=== PATIENT | female | born 1945 | race Caucasian/White ===

== ENCOUNTER 2022-04-10 11:15 | Outpatient (RCR) | payer MEDICARE, OTHER, SELFPAY ==
--- NOTE | 2022-01-24 14:34 | PT.OPEX ---
Please sign eval seen below to indicate agreement with treatment plan and interventions to be provided. Thank you. - Justyna PT [place] Outpatient Eval PT [facility] Outpatient Eval Start: 01/24/22 12:51 Freq: Status: Active Protocol: Document 01/24/22 12:51 TLQ (Rec: 01/24/22 14:22 TLQ [id number]) E-Signed By Justyna Banks DPT Physical Therapy Outpatient Evaluation Insurance Information Insurance Name Medicare B,Other; See Comments Insurance Information/Comments Aetna [facility] Medical Diagnosis Pain in R shoulder (M25.511) Treating Diagnosis Pain in R shoulder (M25.511) Cervicalgia (M54.2) Abnormal posture (R29.3) Referring MD Dr. Trista Lin Subjective Subjective Patient reports pain in her R shoulder that started randomly about a month ago. Initially felt like a shot in the side of her arm, now location more on the front of the shoulder. Reports her doctor prescribed her 10 days of Naproxen, takes 2x/day with food. Reports doctor thinks it is osteoarthritis. Patient has pain with unloading the reaching behind her back or when reaching to put dishes away in the cupboard. Has tried ibuprofen in the past but stopped working. Reports she is not able to sleep on her R side, is a side sleeper. Is R handed. Denies any past hx of shoulder pain/injuries. Has numbness occasionally in lateral 3 fingers, has to sleep specific way to prevent tingling. Reports increased frequency of headaches in the past few months, at least 1 per week. Denies nausea, dizziness, visual/auditory changes with headaches. Pain Comments 0/10 at best, 8/10 at worst describes pain as a dull ache can be a quick pain if over reach for something Date of Last Physician Visit 01/15/22 Current Work Status Retired Preferred Name Nayeli Precautions Therapy Limitations/Systems Review Not Limited Objective Range of Motion Flexion - L 147, R 128 Abduction - L 120, R 80 painful IR - L 90, R 90 ER - L 60, R 68 twinge around 20 deg. Strength Sh. flexion - L 5, R 4 mild painful Abduction - L 5, R 4- painful IR - L 5, R 5 ER - L 5, R 5 Elbow flexion - L 5, R 4+ mild pain Palpation Tender with palpation of R proximal bicep tendon, pecs, supraspinatus, upper trap, suboccipitals Posterior GH mob - normal bilaterally 1st rib mobility - normal bilaterally Posture Forward head, rounded shoulders Other/Pertinent Objective Special tests: Mccoy-marybeth - negative bilaterally Neer impingement - negative bilaterally, hesitant on R Drop arm test - negative L, twinge around 120 on R Empty can - negative L, positive for pain on R Functional Test Performed & Score SPADI (01/24/22) pain score - 43/50 (86%) disability score - 50/80 (62.5 % impaired) total score - 93/130 MDC = 13 points Assessment Assessment/Impression Patient is a 76 year old female who presents with R shoulder symptoms consistent with impingement due to decreased joint space from osteoarthritis. She has pain with tasks involving reaching overhead or behind her back. Decreased AROM for shoulder flexion, abduction, and external rotation. Tender with palpation of R proximal bicep , supraspinatus, and upper trapezius. Tight muscles referring pain to head and may be causing headaches. Negative tests for shoulder impingement but demonstrated hesitancy to perform tests due to perceived pain. Patient will benefit from physical therapy interventions to increase R shoulder ROM, strength, and decrease tissue tightness to improve overall upper extremity mobility to return patient to PLOF. Primary Functional Limitations R shoulder pain, difficult with reaching overhead and behind back, decreased R shoulder ROM Plan of Care Rehabilitation Potential Good Physical Therapy Goals created 01/24/22: STG - Patient will decrease subjective report of pain from 8/10 at worst to 5/10 to indicate improving symptoms and positive response to interventions in 4 weeks. 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 LTG - Patient will increase R shoulder ROM to be WFL for improved ability to perform overhead and behind the back reaching with decreased pain in 10 weeks. LTG - Patient will decrease total score on SPADI from 93 to 70 to indicate decrease in symptoms and improvement in ability to perform functional UE tasks around the house and return toward PLOF in 10 weeks . Treatment Plan/Direct Interventions Electrical Stimulation,Joint Mobilization,Manual Therapy, Neuromuscular Re-ed, Therapeutic Activities, Therapeutic Exercises Frequency/Duration 1x/week for 8-10 weeks Patient Will Be Discharged From Therapy Completion of LTG(s),Skills Plateau,Independent w/HEP, Independently Progressing Evaluation Billing Untimed Code Treatment Minutes 35 Complexity Moderate Certification Information Initial Certification Date 01/24/22 Ending Certification Date 04/04/22
== END 2022-07-11 09:58 | disposition home or self-care (01) ==
PROVIDERS: PCP Family Medicine; Visit Provider Family Medicine
DX: M25.511 Pain in right shoulder (principal); Z51.89 Encounter for other specified aftercare
CPT/HCPCS: 97110; 97140; 97162

== ENCOUNTER 2022-05-23 13:24 | Outpatient (CLI) | payer MEDICARE, OTHER, SELFPAY ==
--- OUTSIDE RECORDS SUMMARY | 2022-05-23 09:51 | XMS_ITS | Clinical Summary ---
:1945 Author Organization [employer] [facility] Address [place] [address] Care Team Providers Name Role Phone Konstantin Pak MD Primary Care Provider [phone] Allergies Active Allergy Reactions Severity Noted Date Comments Bacitracin 12/24/2006 Hymenoptera Allergenic Extract Anaphylaxis High 01/18/2007 Cephalexin *Unknown 12/05/2014 Medications Medication Sig Dispensed Refills Start Date End Date Status ASPIRIN 81 MG TAB, take 1 tablet (81 0 12/24/2006 Active DELAYED RELEASE mg) by oral route once daily MULTIVITAMIN TAB take 1 tablet by 0 12/24/2006 Active oral route once daily with food GLUCOSAMINE 1500 COMPLEX one tab daily, 0 12/24/2006 Active 500 MG-400 MG CAP every other day two tabs metFORMIN (GLUCOPHAGE) Take 250 mg by 0 Active 250 mg as half tablet mouth 2 times daily with meals. rx EPINEPHrine (EPIPEN) Inject 1 Each 0 Active 0.3 mg/0.3 mL injection intramuscular one (ED DC MED) time if needed for Allergic Reaction. hydrochlorothiazide Take 25 mg by 0 Active (HCTZ) 25 mg tablet mouth once daily. amLODIPine (NORVASC) 5 Take 5 mg by mouth 0 Active mg tablet once daily. calcium Take 1 tablet by 0 Act annabelle carbonate-vitamin D3, mouth once daily 600 mg-400 unit, with a meal. (CALCIUM WITH VITAMIN D) 600 mg(1,500mg) -400 unit tablet Cyanocobalamin (VITAMIN Take 2,000 mcg by 0 Active B-12) 2,000 mcg tablet mouth once daily. Mv,Ca,Vmr-QL-Kusxwn Take 1 tablet by 0 Active No.157 (ESTROVEN MAXIMUM mouth once daily. STRENGTH) 400 mcg tab Active Problems Not on file Family History Medical History Relation Name Comments Genetic Other cancer-father~hy pertension-mother~cataracts-mother~stro ke-mother~lazy e ye-brother Relation Name Status Comments Other Social History Tobacco Use Types Packs/Day Years Used Date Never Smoker 0 Smokeless Tobacco: Never Used Alcohol Use Standard Drinks/Week Comments No 0 (1 standard drink = 0.6 oz pure alcoho l) RARE Alcohol Habits Answer Date Recorded How often do you have a drink containing alcohol? Not asked How many drinks containing alcohol do you have on a typical Not asked day when you are drinking? How often do you have six or more drinks on one occasion? No t asked Comment: RARE 12/07/2014 Sex Assigned at Date Recorded Not on file Obstetrics History Last Filed Vital Signs Vital Sign Reading Time Taken Comments Blood Pressure 133/74 12/07/2014 8:55 AM CDT Pulse 54 12/07/2014 8:55 AM CDT Temperature 36.7 ??C (98.1 ??F) 12/07/2014 8:10 AM CDT Respiratory Rate 16 12/07/2014 8:55 AM CDT Oxygen Saturation 93% 12/07/2014 8:55 AM CDT Inhaled Oxygen Concentration - - Weight 95 kg (209 lb 7 oz) 12/07/2014 6:28 AM CDT Height 171.5 cm (5' 7.5) 12/07/2014 6:28 AM CDT Body Mass Index 32.32 12/07/2014 6:28 AM CDT Plan of Treatment Health Maintenance Due Date Last Done Comments Tdap 1957 Depression screening for age 12+ 1958 BMI (ht and wt on same day) for age 18+ 1964 Hepatitis C screening for age 18-79 1964 Tetanus booster 1966 Colonoscopy through age 75 11/17/1991 Lipids for age 45-75 11/17/1991 Mammogram for age 45-75 11/17/1991 Zoster (shingles) series for age 50+ (1 of 1996 2) DEXA/DXA scan for age 65+ 11/17/2011 Pneumococcal series for age 65+ (1 - PCV) 11/17/2011 COVID-19 vaccine series (3 - Booster for 11/17/2020 021, 09/01/2020 Pfizer series) Influenza for age 65+ 03/13/2022 Medical Devices Implanted Type Area Nuclear Reactor Operator Device Shelf Model / Serial Identifier Expiration / Lot Date Lens Iol Toric Iq At3 22.5 - [id number] Left: Armin 12/10/2018 [id number]# / Implanted: Qty: 1 on 11/21/2014 by Isael Suazo MD at [facility] [employer] [facility] [id number] / Lens Iol Toric Iq At5 22.5 - [id number] Right: Armin 09/10/2019 [id number]# / Implanted: Qty: 1 on 12/07/2014 by Isael Suazo MD at [facility] [employer] [facility] [id number] / Results Not on filefrom Last 3 Months Insurance Payer Benefit Plan / Subscriber ID Effective Dates Phone Addre ss Type Group MEDICARE PART A MEDICARE PART A [id number] Effective for ATTN: CLAIMS - HB USE ONLY HB ONLY all dates [address] [place] [address] MEDICARE PART B MEDICARE PART B [id number] 2012-Present ATTN: CLAIMS - HB USE ONLY HB ONLY [address] [place] [address] MEDICARE - PB MEDICARE PB [id number] 2012-Present ATT N: CLAIMS USE ONLY ONLY [address] [place] [address] PREFERRED ONE AETNA [id number] 2013-Present [address] [place] [address] (Home) [place] [id number] [employer] [place] Personal/Family Spouse [address] (Home) [place] [id number] Advance Directives Documents on File Type Date Recorded Patient Scoop Filler Explanati on Healthcare Directive 01/23/2007 Latest Code Status on File Code Status Date Activated Date Inactivated Comments Full Code 02/07/2008 11:23 AM 02/08/2008 2:10 AM Full Code 02/07/2008 9:01 AM 02/07/2008 11:23 AM Care Teams Local Driver Relationship Specialty Start Date End Date Konstantin Pak MD PCP - General Family Practice 12/05/[address] [place] [id number]
[2022-05-23 12:15] LABS: Albumin* 4.9 g/dL (3.3-5.0); Chloride* 99 mmol/L (96-114)
[2022-05-23 12:16] LABS: Potassium* 4.8 mmol/L (3.6-5.1); Sodium* 139 mmol/L (135-149)
[2022-05-23 12:18] LABS: Alanine Aminotransferase* 46 U/L (4-35); Alkaline Phosphatase* 66 U/L (40-150); Aspartate Amino Transferase* 47 U/L (12-35); Bilirubin Total* 0.8 mg/dL (0.1-1.5); Blood Urea Nitrogen* 16 mg/dL (7-30); Calcium* 9.8 mg/dL (8.4-10.6); Carbon Dioxide* 29 mmol/L (20-32); Cholesterol* 129 mg/dL (90-199); Creatinine* 0.9 mg/dL (0.5-1.5); Estimated Glomerular Filt Rate 67 ml/min; Glucose* 201 mg/dL (60-115); Total Protein* 7.8 g/dL (6.0-8.3); Triglycerides* 253 mg/dL (40-149)
[2022-05-23 12:19] LABS: HDL Cholesterol* 43 mg/dL (>=50); LDL Cholesterol Calculated 35 mg/dL (<100)
[2022-05-23 12:54] LABS: Creatinine Urine 197.2 mg/dL
[2022-05-23 12:58] LABS: Microalbumin Creatinine Ratio 50 mg/g (0-30); Microalbumin Urine 11 mg/dL
== END 2022-05-23 13:25 | disposition home or self-care (01) ==
PROVIDERS: PCP Family Medicine; Visit Provider Family Medicine
DX: E78.5 Hyperlipidemia, unspecified (principal); E11.9 Type 2 diabetes mellitus without complications; I10 Essential (primary) hypertension
CPT/HCPCS: 80053; 80061; 82043; 82570

== ENCOUNTER 2022-06-19 08:02 | Outpatient (CLI) | payer MEDICARE, SELFPAY ==
--- OUTSIDE RECORDS SUMMARY | 2022-06-19 08:18 | XMS_ITS | Clinical Summary ---
:1945 Author Organization [employer] [facility] [place] [address] Care Team Providers Name Role Phone Konstantin Pak MD Primary Care Provider [phone] Allergies Active Allergy Reactions Severity Noted [...] B-12) 2,000 mcg tablet mouth once daily. Mv,Ca,Gjp-VO-Ubnrgo Take 1 tablet by 0 Active No.157 [...] 76 11/17/1991 Lipids for age 45-75 11/17/1991 Zoster (shingles) series for age 50+ (1 of 1996 2) DEXA/DXA scan for age 65+ 11/17/2011 Pneumococcal series for age 65+ (1 - PCV) 11/17/2011 COVID-19 vaccine series (3 - Booster for 11/17/202009/22/2 021, 09/01/2020 Pfizer series) Influenza for age 65+ 03/13/2022 Medical Devices Implanted Type Area Urologic Surgeon Device Shelf Model / Serial Identifier Expiration / Lot Date Lens Iol Toric Iq At3 22.5 - [id number] Left: Armin 12/10/2018 [id number]# / Implanted: Qty: 1 on 11/21/2014 by Isael Suazo MD at [facility] [employer] [id number] / Lens Iol Toric Iq At5 22.5 - [id number] Right: Armin 09/10/2019 [id number]# / Implanted: Qty: 1 on 12/07/2014 by Isael Suazo MD at [facility] [employer] [facility] [id number] / Results Not on filefrom Last 3 Months Insurance Payer Benefit Plan / Subscriber ID Effective Dates Phone Addre ss Type Group MEDICARE PART A MEDICARE PART A [id number] Effective for ATTN: CLAIMS - HB USE ONLY HB ONLY all dates [address] [place] [address] MEDICARE PART B MEDICARE PART B [id number] 2012-Present ATTN: CLAIMS - HB USE ONLY HB ONLY [address] [place] [address] MEDICARE - PB MEDICARE PB [id number] 2012-Present ATT N: CLAIMS USE ONLY ONLY [address] [place] [address] PREFERRED ONE AETNA [id number] 2013-Present [address] [place] [address] (Home) [place] [address] [employer] [place] Personal/Family Spouse [address] (Home) [place] [phone] Advance Directives Documents on File Type Date Recorded Patient Legal Document Assistant Explanati on Healthcare Directive 01/23/2007 Latest Code Status on File Code Status Date Activated Date Inactivated Comments Full Code 02/07/2008 11:23 AM 02/08/2008 2:10 AM Full Code 02/07/2008 9:01 AM 02/07/2008 11:23 AM Care Teams Executive Creative Director Relationship Specialty Start Date End Date Konstantin Pak MD PCP - General Family Practice 12/05/[address] [place] [id number]
--- NOTE | 2022-06-19 09:00 | CRLHL7_ITS ---
For Patients: As a result of the Century Cures Act, medical imaging exams and procedure reports are released immediately into your electronic medical record. You may view this report before your referring provider. If you have questions, please contact your health care provider. Indication: follow up renal carcinoma Technique: Postcontrast CT abdomen and pelvis. 99 cc Isovue 370 intravenous contrast. Please note that all CT scans at this facility use dose modulation, iterative reconstruction, and/or weight-based dosing when appropriate to reduce radiation dose to as low as reasonably achievable. Comparison: 06/18/2021 Findings: Stable 6 millimeter noncalcified nodule right lower lobe, 3/3. Stable calcified granulomas in the right middle lobe. Dependent scarring in both lung bases. No pleural effusion. Simple cyst within the left hepatic lobe measuring 1.3 cm. Calcified splenic granulomas. No suspicious adrenal lesion. Simple left renal cortical cysts again noted. Simple cyst lower pole right kidney. Postop changes to the upper pole of the right kidney. No hydronephrosis. No perinephric fluid collection or abscess. No retroperitoneal adenopathy. Pancreas normal. Normal gallbladder. Vascular calcifications. No pelvic or inguinal adenopathy. Bladder normal. Uterus absent. Stable adnexa. No bowel obstruction. No inflammatory changes. Mild colonic diverticulosis. Normal appendix. No fracture. A few scattered bone islands are present. Impression: Stable exam. No evidence of metastatic disease. Please note that all CT scans at this facility use dose modulation, iterative reconstruction, and/or weight-based dosing when appropriate to reduce radiation dose to as low as reasonably achievable. Dictated by Narinder Perry MD @ 06/23/2022 9:11:02 AM (Electronically Signed)
== END 2022-06-19 08:03 | disposition home or self-care (01) ==
PROVIDERS: PCP Family Medicine; Visit Provider Family Medicine
DX: C64.9 Malignant neoplasm of unspecified kidney, except renal pelvis (principal)
CPT/HCPCS: 74177; Q9967

== ENCOUNTER 2023-01-08 14:59 | Outpatient (CLI) | payer MEDICARE, OTHER, SELFPAY ==
--- NOTE | 2023-01-08 15:00 | CRLHL7_ITS ---
For Patients: As a result of the Century Cures Act, medical imaging exams and procedure reports are released immediately into your electronic medical record. You may view this report before your referring provider. If you have questions, please contact your health care provider. BILATERAL SCREENING MAMMOGRAM WITH COMPUTER-AIDED DETECTION AND TOMOSYNTHESIS TECHNIQUE: CC and MLO views were obtained. These mammographic images have been obtained using full-field digital technique. These mammographic images were interpreted with the benefit of computer-aided detection. Breast Tomosynthesis was used in this interpretation. COMPARISON FILM: 01/06/22, 08/31/19, 08/30/18. FINDINGS: The breasts are heterogeneously dense, which may obscure small masses IMPRESSION: There is no radiographic evidence for malignancy. ASSESSMENT: BI-RADS Category 2: Benign RECOMMENDATION: Routine screening mammogram in 1 year. A lay language report of this examination will be provided to the patient. Narinder Perry M.D. Diagnostic Radiologist [email or web address] INÉS/Dictated by: Narinder Perry MD @ 01/09/2023 8:28:00 AM (Electronically Signed)
== END 2023-01-08 15:00 | disposition home or self-care (01) ==
LOC: MAMMO 15:00
PROVIDERS: PCP Family Medicine; Visit Provider Family Medicine
DX: Z12.31 Encounter for screening mammogram for malignant neoplasm of breast (principal); R92.2 Inconclusive mammogram
CPT/HCPCS: 77063; 77067

== ENCOUNTER 2023-03-11 10:30 | Outpatient (RCR) | payer MEDICARE, OTHER, SELFPAY ==
--- NOTE | 2023-01-21 16:18 | PT.OPEX ---
PT [place] Outpatient Eval PT [facility] Outpatient Eval Start: 01/21/23 07:46 Freq: Status: Active Protocol: Document 01/21/23 07:47 ENM (Rec: 01/21/23 09:48 ENM [id number]) E-signed By Belinad Kenney, DPT Physical Therapy Outpatient Evaluation Insurance Information Recert Due Date 04/15/23 Insurance Name Medicare B Medical Diagnosis unilateral primary osteoarthritis, right hip tendinitis involving right hip abductors Treating Diagnosis right hip pain, impaired standing tolerance, decreased hip strength, decreased glute strength Referring MD Scottie Subjective Subjective Patient presents to PT for complaint of right hip pain. Pains started 1-2 months ago and have increased to a significant level. It feels like a dull ache that can be sharp. Sometimes the pain is associated with stiffness and other times it goes across her low back. Standing for >15-20 mins will increase the pain, it does seem to subside after sitting for an hour. Walking does not seem too bad in terms of the pain. She was also having right knee pains which have improved some after an injection in November but is still painful with sitting for longer periods then getting up and going down the stairs. She states that she doesn't exercise but has a recumbent bike. PMHx: left knee replacement, diabetes, HTN, arthritis Imaging: show mild-moderate osteoarthrosis with small osteophytes and mild joint space narrowing. No acute fractures, avulsions, or intraosseous pathology in right hip. No signs of AVN. Weightbearing AP, Lateral and [place] views of the bilateral knee Left knee-TKA implants in appropriate, stable position. No evidence of loosening or failure that is clearly visible. Right sqic-qixqzlnp-sbjzeb osteoarthrosis primarily in the medial compartment with 80 +% joint space narrowing, and subchondral sclerosis. Small tricompartmental osteophytes. No acute fractures, avulsions , or intraosseous pathology. No signs of AVN. Pain Comments at its best: 1-2/10 at its worse: 9-10/10 easing: sitting aggravating: standing, bending or squat down Current Work Status Retired Objective Other/Pertinent Objective ROM: AROM hip flexion WNL B IR + for pain on L 40 R 48 ER + for pain on L 28 R 35 passive end range hip IR and flexion + for pain on R side Lumbar FF low back pain, repeated x5 WNL ext 25% limited, low back pain repeated x5 SB WNL no pain rot WNL no pain ext with rotation no pain motion primarily coming from thoracic spine to perform strength: 5x STS 19.06s without use of arms, feeling low back pain when performing hip flexors L 4/5 R 4-/5 knee extensors 4/5 B hip abductors L 3+/5 R 4/5 SL hip extension L able to hold against mod resistance no pain R + for pain able to hold against moderate resistance palpation/joint mobility: distraction of femur + for relief on R side no tenderness to palpation along hip musculature gait/ambulation: SLS L able to hold 1-2s, R able to hold 2-3s with notable L hip hike to maintain stability special tests: YARI + for groin pain B and some lateral hip pain on R FADDIR feeling a stretch on R side no pain on L side SCOUR + for groin discomfort on R sidelying LEILA + for moderate tightness B Posture: Patient rests with increased thoracic kyphosis, tends to rest in hyperextension through low back Assessment Assessment/Impression Patient is a 77 year old female presenting with 2 month history of right hip pain. Their primary complaint is of pain with standing >15-20 mins . Pains improve with sitting for an hour and are not significant when walking. She also has a history for right knee pain that has improved some after a cortisone injection she received in November. Upon assessment patients concordant pains brought on with resisted right hip extension and passive end range right hip flexion/IR. She has relief of hip pains with long axis distraction of RLE. Weakness noted with MMT most significant in left hip abductors and right hip flexors. No significant tenderness to palpation of hip musculature. Noted that patient tends to rest with lumbar hyperextension that also seems to be contributing to pains in right glute. Shira would greatly benefit from skilled PT to address impairments stated above in order to perform all functional mobility and household duties without significant discomfort or difficulty. Primary Functional Limitations standing, walking Plan of Care Rehabilitation Potential Good Physical Therapy Goals In 8-10 visits: 1. Patient will be IND with HEP and self management of symptoms 2. Patient will improve 5x STS from 19.06s to 15.06s (MDC 4s ) to demonstrate improvements in functional LE strength 3. Patient will be able to stand for > 25 mins with 3/10 or less right hip pain to demonstrate improvements in standing tolerance 4. Patient will not have to sit throughout day for pain relief to demonstrate improvements in tolerance for household duties Coordination/Communication With Referral Source Treatment Plan/Direct Interventions Gait Training,Ice/Cold/ Vasopneumatic,Joint Mobilization,Manual Therapy, Neuromuscular Re-ed,Self-Care/ Home Management,Therapeutic Activities,Therapeutic Exercises Frequency/Duration 1x a week for 8 weeks, as needed for 2 visits Patient Will Be Discharged From Therapy Completion of LTG(s), Independent w/HEP Evaluation Billing Untimed Code Treatment Minutes 38 Complexity Low Certification Information Initial Certification Date 01/21/23 Ending Certification Date 04/15/23 Provider Signature Shows Agreement With POC & Medical Necessity Physician Signature & Date Requested Please Sign/Date Here Physician Comment/Change : Physician NPI Number #
== END 2023-06-05 14:37 | disposition home or self-care (01) ==
PROVIDERS: PCP Family Medicine; Visit Provider Orthopaedic Surgery Sports Medicine
DX: M16.11 Unilateral primary osteoarthritis, right hip (principal); M76.891 Other specified enthesopathies of right lower limb, excluding foot; Z51.89 Encounter for other specified aftercare
CPT/HCPCS: 97110; 97140; 97161

== ENCOUNTER 2023-03-14 21:38 | Observation (INO) | payer MEDICARE, OTHER, SELFPAY ==
[2023-03-14] VITALS (7 sets, daily range): BP systolic 178; BP diastolic 77; PULSE 71–86; RESP 22; TEMP 35.7; O2SAT 94–96; BMI 31.5
--- NOTE | 2023-03-14 22:00 | CRLHL7_ITS ---
For Patients: As a result of the Cures Act, medical imaging exams and procedure reports are released immediately into your electronic medical record. You may view this report before your referring provider. If you have questions, please contact your health care provider. INDICATION: Fall, pain. TECHNIQUE: Three views of the right shoulder. FINDINGS: Acute comminuted fracture of the proximal shaft of the right humerus also including the surgical neck. Prominent butterfly fragment. Dictated by Trenton Huffman MD @ 03/14/2023 11:47:58 PM (Electronically Signed)
--- NOTE | 2023-03-14 22:06 | ED_ITS ---
HPI - General Adult General Chief complaint: Extremity Pain/Injury, Upper Stated complaint: broke her R shoulder, blood sugar at 260 Time Seen by Provider: 03/14/23 22:04 History of Present Illness HPI narrative: Pt states she fell tonight about an hour ago and messed up her right shoulder and hit left knee. Denies losing consciousness, denies head or neck pain. Pt states her blood sugar is 263 77-year-old woman presenting to the emergency depart quite right shoulder area pain following fall. She has also landed on her left knee. Underlying history of diabetes they make mention the blood sugar seems to been up and down little bit. Most recently measured with continuous monitoring at 263. Did not had her head and without neck or back pain. No abdominal pain. Reported some numbness in the right thumb and index finger of though this is not new she says and now it has improved. Any movement of her right arm causes great deal of pain. Postop bilateral total knees Related Data Home Medications Medication Instructions Recorded Confirmed aspirin 81 mg tablet,delayed 81 mg PO QDAY 01/15/22 03/14/23 release (Adult Low Dose Aspirin) calcium carbonate 600 mg-vitamin 1 tab PO DAILY 01/15/22 03/14/23 D3 20 mcg (800 unit) tablet lancets (Accu-Chek Fastclix Lancet 01/15/22 03/14/23 Drum) multivitamin (Multiple Vitamins 1 tab PO QAM 01/15/22 03/14/23 tablet) pen needle, diabetic 31 gauge x 01/15/22 03/14/23 5/16 (BD Ultra-Fine Short Pen Needle) cholecalciferol (vitamin D3) 50 50 mcg PO DAILY 08/26/22 03/14/23 mcg (2,000 unit) tablet insulin glargine 100 unit/mL 20 unit subcut BID 01/20/23 03/14/23 subcutaneous solution (Lantus U-100 Insulin) naproxen 500 mg tablet 500 mg PO BID PRN pain 03/14/23 03/14/23 Previous Rx's Medication Instructions Recorded insulin lispro 100 unit/mL 15 - 25 unit (0.15 - 0.25 mL) 02/04/22 subcutaneous pen (Humalog KwikPen subcut TIDWMEAL #15 mL (U-100) Insulin) amoxicillin 500 mg capsule 2,000 mg (4 x 500 mg) PO ONCE #4 04/15/22 caps alendronate 70 mg tablet 70 mg PO .Every 7 Days #12 tabs 08/12/22 losartan 50 mg tablet 50 mg PO BID #180 tabs 08/12/22 rosuvastatin 5 mg tablet 5 mg PO .Bedtime #90 tabs 08/12/22 hydrochlorothiazide 25 mg tablet 25 mg PO DAILY #90 tabs 08/18/22 Blood Glucose Meter #1 ea 12/10/22 semaglutide 0.25 mg or 0.5 mg (2 0.25 mg (0.368 mL) subcut QWEEK #3 12/10/22 mg/3 mL) subcutaneous pen injector mL (Ozempic) blood sugar diagnostic (Accu-Chek #100 ea 12/11/22 [place] Plus test strips) flash glucose scanning reader #3 ea 12/22/22 (FreeStyle Johnnie 2 [place]) flash glucose sensor (FreeStyle #3 ea 12/22/22 Johnnie 2 Sensor kit) metformin 500 mg tablet,extended 1,000 mg (2 x 500 mg) PO BID #360 01/05/23 release 24 hr tabs semaglutide 0.25 mg or 0.5 mg (2 0.5 mg (0.736 mL) subcut QWEEK 4 01/16/23 mg/3 mL) subcutaneous pen injector weeks #3.2 mL (Ozempic) Allergies Allergy/AdvReac Type Severity Reaction Status Date / Time cephalexin Allergy Severe Diarrhea Verified 03/14/23 21:52 bacitracin Allergy Mild Blisters Verified 03/14/23 21:52 HARRIET Inhibitors AdvReac Mild Cough Verified 03/14/23 21:52 bee venom Allergy Intermediate Swelling Uncoded 01/16/23 11:36 at site spinal anesthetic Allergy Severe Uncoded 01/16/23 11:36 back pain Review of Systems Status of ROS: Reports: 6 or more systems reviewed and unremarkable except as noted in History and below [facility] Medical History Shoulder pain, right ?M25.511 - Pain in right shoulder (ICD-10) Hx of fall ?Z91.81 - History of falling (ICD-10) Closed fracture of left proximal humerus ?S42.202A - Unspecified fracture of upper end of left humerus, initial e ncounter for closed fracture (ICD-10) Chronic cough ?R05.3 - Chronic cough (ICD-10) Tinea pedis ?B35.3 - Tinea pedis (ICD-10) Obstructive sleep apnea treated with continuous positive airway pressure (CPAP) (2013) ?G47.33 - Obstructive sleep apnea (adult) (pediatric) (ICD-10) ?Z99.89 - Dependence on other enabling machines and devices (ICD-10) Diverticulosis of intestine (2018) ?K57.90 - Diverticulosis of intestine, part unspecified, without perforation or abscess without bleeding (ICD-10) Migraine ?G43.909 - Migraine, unspecified, not intractable, without status migrainosus (ICD-10) Osteoarthritis ?M19.90 - Unspecified osteoarthritis, unspecified site (ICD-10) Neuropathy ?G62.9 - Polyneuropathy, unspecified (ICD-10) Dyslipidemia ?E78.5 - Hyperlipidemia, unspecified (ICD-10) Asthma ?J45.909 - Unspecified asthma, uncomplicated (ICD-10) Superficial thrombophlebitis ?I80.9 - Phlebitis and thrombophlebitis of unspecified site (ICD-10) Renal cell carcinoma of right kidney (~2015) ?C64.1 - Malignant neoplasm of right kidney, except renal pelvis (ICD-10) Basal cell carcinoma (2015) ?C44.91 - Basal cell carcinoma of skin, unspecified (ICD-10) Fatty infiltration of liver (2017) ?K76.0 - Fatty (change of) liver, not elsewhere classified (ICD-10) Background retinopathy (~06/2020) ?H35.00 - Unspecified background retinopathy (ICD-10) Normal echocardiogram (2020) Surgical History S/P right knee arthroscopy (10/24/20) ?Z98.890 - Other specified postprocedural states (ICD-10) History of nephrectomy, right (2015) ?Z90.5 - Acquired absence of kidney (ICD-10) History of arthroscopy of left knee (03/10/14) ?Z98.890 - Other specified postprocedural states (ICD-10) History of colonoscopy (2019) ?Z98.890 - Other specified postprocedural states (ICD-10) History of right inguinal hernia repair (1969) ?Z98.890 - Other specified postprocedural states (ICD-10) ?Z87.19 - Personal history of other diseases of the digestive system (ICD-10) History of total hysterectomy with bilateral salpingo-oophorectomy (BSO) (1987) ?Z90.710 - Acquired absence of both cervix and uterus (ICD-10) ?Z90.722 - Acquired absence of ovaries, bilateral (ICD-10) ?Z90.79 - Acquired absence of other genital organ(s) (ICD-10) History of breast lump removal (2005) ?Z98.890 - Other specified postprocedural states (ICD-10) History of bilateral breast reduction surgery (2006) ?Z98.890 - Other specified postprocedural states (ICD-10) History of arthroplasty of left knee (01/08/15) ?Z96.652 - Presence of left artificial knee joint (ICD-10) History of bilateral cataract extraction (2014) ?Z98.41 - Cataract extraction status, right eye (ICD-10) ?Z98.42 - Cataract extraction status, left eye (ICD-10) Family History Father Colon cancer, Onset Age: 50 Non-Hodgkin's lymphoma Brother Non-Hodgkin's lymphoma Social History Narrative: , 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 Shivering in apparent pain. Breathing easily though. Favoring the right arm. Head looks to be atraumatic. Neck is nontender. Back also nontender. Breathing easily lungs appear to be clear. Heart in regular rate and rhythm. Well-perfused peripherally with intact pulses in upper extremities. Left knee has some light abrasion anteriorly with some mild swelling. Generally tender to palpation but she had been ambulatory and is flexing the knee without significant pain. She does also have a skin tear lateral patella area deep intradermal. Triangular shape about an inch and a quarter in maximal dimension. Shoulder with general swelling about the humeral head and quite t ana maria to palpation there. She does not have tenderness palpation of along the clavicle or the AC joint. Const: Vital Signs, click to edit/add: Vital Signs - 24 hr 03/14/23 21:45 Temperature 96.2 F L Pulse Rate [Pulse Oximeter] 81 Respiratory Rate 22 Blood Pressure [Le ft Upper Arm] 178/77 H Pulse Oximetry 96 Oxygen Delivery Me thod Room Air Documenting provider has reviewed patient's vital signs: yes Course Vital Signs Vital signs: Initial Vital Signs Temperature 96.2 F L 03/14/23 21:45 Temperature Source Temporal Artery Scan 03/14/23 21:45 Pulse Rate 81 03/14/23 21:45 Respiratory Rate 22 03/14/23 21:45 Blood Pressure 178/77 H 03/14/23 21:45 Blood Pressure Mean 110 H 03/14/23 21:45 Pulse Oximetry 96 03/14/23 21:45 Oxygen Delivery Method Room Air 03/14/23 21:45 Vital Signs Temperature 96.2 F L 03/14/23 21:45 Pulse Rate 81 03/14/23 21:45 Respiratory Rate 22 03/14/23 21:45 Blood Pressure 178/77 H 03/14/23 21:45 Pulse Oximetry 96 03/14/23 21:45 Oxygen Delivery Method Room Air 03/14/23 21:45 Temperature 96.2 F L 03/14/23 21:45 Pulse Rate 81 03/14/23 21:45 Respiratory Rate 22 03/14/23 21:45 Blood Pressure 178/77 H 03/14/23 21:45 Pulse Oximetry 96 03/14/23 21:45 Oxygen Delivery Method Room Air 03/14/23 21:45 Medical Decision Making MDM Narrative Medical decision making narrative: I would suspect humeral neck or upper humeral fracture otherwise. Shoulder x- rays have been ordered. IV has been established receiving L normal saline as well as 75 mcg of fentanyl initially. May need to image her left knee. Fentanyl helped. Review of images by me shows a butterfly type fracture at the proximal humerus. Radiology over-read specifically notes surgical neck involvement. Did discuss this with Orthopedics. Anticipating outpatient care most likely but feels that would benefit from CT imaging. Recommendations for an arm sling, seated more upright to allow also for weight/gravity to distract is fracture somewhat and improve pain. Contemplating outpatient care, is ordered for 2 tabs of Architexa to assess effectivity in pain management Have sent then for CT imaging of the shoulder and also than the left knee which on re-examination is more swollen and more generally tender. By my read this left knee looks to have intact postoperative hardware. Soft tissue swelling. It does not appear that will be able to initially manage pain on her own at home. Will be admitted. With increased pain is ordered for a mg of Dilaudid. I return also to repair the injury to the left knee. Cleansed with Shur-Clens and had had LET placed anticipating manipulation. Ultimately laid flap down and placed a Tegaderm dressing. I have discussed with hospitalist coverage overnight for admission. Medical Records Medical records reviewed: Yes I reviewed the patient's medical records Discharge Plan Discharge Clinical Impression: Hematoma, Pain, Skin tear, Abrasion, Fracture, humerus, neck Patient Disposition: Admitted As Observation Condition: Stable
[2023-03-14] MEDS: 0.9 % SODIUM CHLORIDE 1000 ml 1,000 ML IV (22:35)
[2023-03-14] MEDS: fentaNYL 100 MCG/2 ML inj 75 MCG IVP (22:36)
[2023-03-14] MEDS: LIDOCAINE/EPINEP/TETRACAINE 3 ML GEL..ML. TOPICAL (23:34)
--- NOTE | 2023-03-14 23:54 | CRLHL7_ITS ---
For Patients: As a result of the Century Cures Act, medical imaging exams and procedure reports are released immediately into your electronic medical record. You may view this report before your referring provider. If you have questions, please contact your health care provider. INDICATION: Fall, pain. TECHNIQUE: Left knee 2 views. Permanently recorded images are archived. COMPARISON: Left knee radiographs 01/27/2019. FINDINGS: Left total knee arthroplasty with patellar resurfacing. No evidence for hardware loosening. No acute fracture. No joint effusion. Alignment is normal. The joint spaces are preserved. Mild prepatellar soft tissue swelling. Small superior patellar enthesophyte. IMPRESSION: Mild prepatellar soft tissue swelling. No acute bony abnormality. Intact left total knee arthroplasty without evidence of loosening. Dictated by Lewis Puckett MD @ 03/15/2023 1:31:08 AM (Electronically Signed)
--- NOTE | 2023-03-14 23:54 | CRLHL7_ITS ---
For Patients: As a result of the Century Cures Act, medical imaging exams and procedure reports are released immediately into your electronic medical record. You may view this report before your referring provider. If you have questions, please contact your health care provider. Indication: Fracture evaluation Technique: Noncontrast CT of the right shoulder. Permanently recorded images are archived. Please note that all CT scans at this facility use dose modulation, iterative reconstruction, and/or weight-based dosing when appropriate to reduce radiation dose to as low as reasonably achievable. Comparison: Right shoulder radiographs 03/14/2023 Findings: There is a comminuted, medial apex angulated and moderately displaced right proximal humeral neck fracture. Mild surrounding hemorrhage. No other fracture identified. The glenohumeral joint is congruent. Mild acromioclavicular joint degenerative changes. Inflammatory stranding/edema overlying the right humerus. 9 mm right lower lobe pulmonary nodule. Right middle lobe calcified granuloma. Impression: Comminuted, medial apex angulated and moderately displaced right proximal humeral neck fracture 9 mm right lower lobe pulmonary nodule. Recommend dedicated chest CT for further evaluation. Please note that all CT scans at this facility use dose modulation, iterative reconstruction, and/or weight-based dosing when appropriate to reduce radiation dose to as low as reasonably achievable. Dictated by Lewis Puckett MD @ 03/15/2023 1:36:42 AM (Electronically Signed)
[2023-03-14] MEDS: HYDROCODONE-ACETAMIN 5-325 MG 1 TAB 2 TAB PO (23:55)
[2023-03-15] VITALS (13 sets, daily range): BP systolic 130–160; BP diastolic 66–78; PULSE 62–82; RESP 14–22; TEMP 36.1–37.1; O2SAT 88–96; BMI 32.4
[2023-03-15] MEDS: HYDROmorphone 0.5 mg/0.5 ml inj 1 MG IVP (01:25)
--- NOTE | 2023-03-15 04:01 | P.IMHP_ITS ---
Hospitalist- H&P: HPI History of Present Illness Date Seen: 03/15/23 Chief complaint: broke her R shoulder Narrative: Nayeli is seen as an Interactive Telehealth visit.? Nayeli is a 77 yo female who is Seen in her hospital room at [facility]. She is seen with the assistance of nursing staff. She has been admitted through the emergency room. She tells me she was getting ready for a bonfire this evening was going into the garage tripped and fell landing on her left knee and right shoulder. She had immediate right shoulder pain. She did not hit her head she did not lose consciousness. She scuffed up her knee. Her son-in-law is a EMT and immediately that her arm was broken. She was transferred to the emergency room and evaluated. She appears to have a right humerus fracture. Orthopedics was contacted and. They are recommending it sounds initially conservative management. She has now been admitted for pain control. She denies any other injuries. Denies current headache fever chills nausea vomiting chest pain shortness of breath. Review of Systems Status of ROS: Reports: 10 or more systems reviewed and unremarkable except as noted in History and below [facility] Medical History Shoulder pain, right ?M25.511 - Pain in right shoulder (ICD-10) Hx of fall ?Z91.81 - History of falling (ICD-10) Closed fracture of left proximal humerus ?S42.202A - Unspecified fracture of upper end of left humerus, initial encounter for closed fracture (ICD-10) Chronic cough ?R05.3 - Chronic cough (ICD-10) Tinea pedis ?B35.3 - Tinea pedis (ICD-10) Obstructive sleep apnea treated with continuous positive airway pressure (CPAP) (2014) ?G47.33 - Obstructive sleep apnea (adult) (pediatric) (ICD-10) ?Z99.89 - Dependence on other enabling machines and devices (ICD-10) Diverticulosis of intestine (2018) ?K57.90 - Diverticulosis of intestine, part unspecified, without perforation or abscess without bleeding (ICD-10) Migraine ?G43.909 - Migraine, unspecified, not intractable, without status migrainosus (ICD-10) Osteoarthritis ?M19.90 - Unspecified osteoarthritis, unspecified site (ICD-10) Neuropathy ?G62.9 - Polyneuropathy, unspecified (ICD-10) Dyslipidemia ?E78.5 - Hyperlipidemia, unspecified (ICD-10) Asthma ?J45.909 - Unspecified asthma, uncomplicated (ICD-10) Superficial thrombophlebitis ?I80.9 - Phlebitis and thrombophlebitis of unspecified site (ICD-10) Renal cell carcinoma of right kidney (~2015) ?C64.1 - Malignant neoplasm of right kidney, except renal pelvis (ICD-10) Basal cell carcinoma (2016) ?C44.91 - Basal cell carcinoma of skin, unspecified (ICD-10) Fatty infiltration of liver (2017) ?K76.0 - Fatty (change of) liver, not elsewhere classified (ICD-10) Background retinopathy (~06/2020) ?H35.00 - Unspecified background retinopathy (ICD-10) Normal echocardiogram (2020) Surgical History S/P right knee arthroscopy (10/24/20) ?Z98.890 - Other specified postprocedural states (ICD-10) History of nephrectomy, right (2015) ?Z90.5 - Acquired absence of kidney (ICD-10) History of arthroscopy of left knee (03/10/14) ?Z98.890 - Other specified postprocedural states (ICD-10) History of colonoscopy (2019) ?Z98.890 - Other specified postprocedural states (ICD-10) History of right inguinal hernia repair (1969) ?Z98.890 - Other specified postprocedural states (ICD-10) ?Z87.19 - Personal history of other diseases of the digestive system (ICD-10) History of total hysterectomy with bilateral salpingo-oophorectomy (BSO) (1987) ?Z90.710 - Acquired absence of both cervix and uterus (ICD-10) ?Z90.722 - Acquired absence of ovaries, bilateral (ICD-10) ?Z90.79 - Acquired absence of other genital organ(s) (ICD-10) History of breast lump removal (2005) ?Z98.890 - Other specified postprocedural states (ICD-10) History of bilateral breast reduction surgery (2006) ?Z98.890 - Other specified postprocedural states (ICD-10) History of arthroplasty of left knee (01/08/15) ?Z96.652 - Presence of left artificial knee joint (ICD-10) History of bilateral cataract extraction (2014) ?Z98.41 - Cataract extraction status, right eye (ICD-10) ?Z98.42 - Cataract extraction status, left eye (ICD-10) Family History Father Colon cancer, Onset Age: 50 Non-Hodgkin's lymphoma Brother Non-Hodgkin's lymphoma Social History Narrative: , 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, 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 Does not exercise Non-smoker, Hx tobacco use Rarely consumes alcohol What is your current living situation?: I presently have a place to live Problems where you live: no known problems Problems where you live details: none In the past 12 months, utilities in danger of being shut off: no In the past 12 mos, have been you worried that your food would run out before you had money to buy more?: never true In the past 12 mos, the food you bought just didn't last and you didn't have money to buy more?: never true Highest level of school completed/degree received: high school graduate Smoking Status: Never smoker Do you use any of these nicotine containing products: None Second hand tobacco smoke exposure: No How often do you have a drink containing alcohol: monthly or less Alcohol type: wine How often do you have six or more drinks on one occasion: Never AUDIT-C Alcohol total score: 1 Non-prescribed substance use: denies use Caffeine: Yes (Diet Coke) How often does anyone, including family, friends and others, physically hurt you : never How often does anyone, including family, friends and others, insult or talk down to you: never How often does anyone, including family, friends and others, threaten you with harm: never How often does anyone, including family, friends and others, scream or curse at you: never Little interest or pleasure in doing things: not at all Feeling down, depressed, or hopeless: not at all service: No Meds Home Medications and Allergies Home Medications Medication Instructions Recorded Confirmed Type aspirin 81 mg tablet,delayed 81 mg PO QDAY 01/15/22 03/14/23 History release (Adult Low Dose Aspirin) calcium carbonate 600 mg-vitamin 1 tab PO DAILY 01/15/22 03/14/23 History D3 20 mcg (800 unit) tablet lancets (Accu-Chek Fastclix Lancet 01/15/22 03/14/23 History Drum) multivitamin (Multiple Vitamins 1 tab PO QAM 01/15/22 03/14/23 History tablet) pen needle, diabetic 31 gauge x 01/15/22 03/14/23 History 5/16 (BD Ultra-Fine Short Pen Needle) cholecalciferol (vitamin D3) 50 50 mcg PO DAILY 08/26/22 03/14/23 History mcg (2,000 unit) tablet insulin glargine 100 unit/mL 20 unit subcut BID 01/20/23 03/14/23 History subcutaneous solution (Lantus U-100 Insulin) naproxen 500 mg tablet 500 mg PO BID PRN pain 03/14/23 03/14/23 History Allergies Allergy/AdvReac Type Severity Reaction Status Date / Time cephalexin Allergy Severe Diarrhea Verified 03/14/23 21:52 bacitracin Allergy Mild Blisters Verified 03/14/23 21:52 HARRIET Inhibitors AdvReac Mild Cough Verified 03/14/23 21:52 bee venom Allergy Intermediate Swelling Uncoded 01/16/23 11:36 at site spinal anesthetic Allergy Severe Uncoded 01/16/23 11:36 back pain Exam Narrative: Exam Narrative: Patient is lying in bed she is alert awake she is in no acute distress she is pleasant she is interactive. She does not look toxic. Her head is atraumatic normocephalic pupils equal and reactive extraocular movements are full mucous membranes are moist Neck has no adenopathy per nursing Heart regular rate and rhythm without murmurs rubs or gallops Lungs are clear to auscultation Abdomen bowel sounds are present soft nontender Extremities warm without cyanosis clubbing edema radial pulses present fingers are warm on the right hand per nursing Mood and affect appear to be normal Skin shows no rashes petechiae seen or felt abrasions on her left knee Const: Vital Signs, click to edit/add: Vital Signs - 24 hr 03/14/23 21:45 03/14/23 22:31 03/14/23 22:45 Temperature 96.2 F L Pulse Rate 71 77 Pulse Rate [Pulse Oximeter] 81 Respiratory Rate 22 Blood Pressure Blood Pressure [Le ft Arm] Blood Pressure [Le ft Upper Arm] 178/77 H Pulse Oximetry 96 96 94 Oxygen Delivery Me thod Room Air Oxygen Flow Rate 03/14/23 23:13 03/14/23 23:15 03/14/23 23:30 Temperature Pulse Rate 78 81 73 Pulse Rate [Pulse Oximeter] Respiratory Rate Blood Pressure Blood Pressure [Le ft Arm] Blood Pressure [Le ft Upper Arm] Pulse Oximetry 95 96 94 Oxygen Delivery Me thod Oxygen Flow Rate 03/14/23 23:52 03/15/23 00:00 03/15/23 00:15 Temperature Pulse Rate 86 73 75 Pulse Rate [Pulse Oximeter] Respiratory Rate Blood Pressure Blood Pressure [Le ft Arm] Blood Pressure [Le ft Upper Arm] Pulse Oximetry 95 96 94 Oxygen Delivery Me thod Oxygen Flow Rate 03/15/23 01:31 03/15/23 01:32 03/15/23 01:45 Temperature Pulse Rate 81 78 82 Pulse Rate [Pulse Oximeter] Respiratory Rate Blood Pressure 130/69 Blood Pressure [Le ft Arm] Blood Pressure [Le ft Upper Arm] Pulse Oximetry 93 95 91 Oxygen Delivery Me thod Oxygen Flow Rate 03/15/23 02:00 03/15/23 02:00 03/15/23 02:45 Temperature 98.7 F Pulse Rate 78 Pulse Rate [Pulse Oximeter] 72 Respiratory Rate 20 Blood Pressure Blood Pressure [Le ft Arm] 160/71 H Blood Pressure [Le ft Upper Arm] Pulse Oximetry 88 88 96 Oxygen Delivery Me thod Nasal Cannula Nasal Cannula Room Air Oxygen Flow Rate 2 2 03/15/23 02:45 Temperature Pulse Rate Pulse Rate [Pulse Oximeter] Respiratory Rate 22 Blood Pressure Blood Pressure [Le ft Arm] Blood Pressure [Le ft Upper Arm] Pulse Oximetry 88 Oxygen Delivery Me thod Nasal Cannula Oxygen Flow Rate 2 Assessment and Plan Assessment and plan (1) Fracture, humerus, neck: Status: Acute (2) Abrasion: Status: Acute (3) 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 Status: Acute (4) Lung nodule: Status: Acute Plan Fracture?humerus at this point we will place a consult for orthopedic surgeon in the meantime will come to ED to treat conservatively. Continue to leave in the sling pain control with Tylenol, oxycodone, hydromorphone. We will keep her n.p.o. in case they ultimately decide to go to surgery in the morning. If they are seen and they are not planning on surgery this can be changed. Anticipate a more conservative route.We will have patient see physical and Occupational Therapy to make sure she does not have any needs as she will not have use of her arm for the next 6 weeks or so. Abrasion?right knee local treatment as needed keep clean and dry Diabetes?patient chronically on 20 units twice a day on Lantus. We will decrease this to 15 we will add a sliding scale low-dose. Hold her Ozempic. We will continue her other medications. Lung nodule?incidentally found on CT scan. This can be followed up with a dedicated CT as an outpatient. DVT prophylaxis will not be needed as I anticipate a short hospital stay as well as her being quite ambulatory. CODE STATUS was reviewed on admission she wishes to be a full code Today's History and Physical is provided via interactive telehealth by Steve Law DO, Pharm. D.. Patient is located at [facility]. Provider is located at [facility]. Nursing staff assisted with the patient's exam. The visit being done today meets criteria for a telehealth visit and the patient or patient?s parent/guardian is aware the visit is a telehealth visit. Camera time start 3:23 AM Treatment time finish 3:38 AM
[2023-03-15] MEDS: HYDROmorphone 0.5 mg/0.5 ml inj IVP ×3 (04:03→10:42)
[2023-03-15] MEDS: SODIUM CHLORIDE 0.9 % (FLUSH) 10 ML SYRINGE 5 ML IVF ×3 (04:03→21:18)
[2023-03-15] MEDS: ASPIRIN 81 MG TABLET EC PO (04:07)
[2023-03-15] MEDS: ROSUVASTATIN CALCIUM 10 MG TABLET 5 MG PO ×2 (04:17→21:17)
--- NOTE | 2023-03-15 04:39 | PC.NURSE ---
Admission note: Pt admitted from ED via stretcher to room 251 @ 0217 dx: R humeral fx. R upper arm bruising, sling in place, CMS intact, minimal swelling noted, rated pain 7/10 for which 0.5mg IV Dilaudid was given w/ relief verbalized. ST also present to L knee, tegaderm placed in ED, bloody in appearance. Chronic pain to R hip/knee, had cortisone injection to knee 1 month ago w/ continued pain relief. JAYLON, uses CPAP @ home, 2L placed during sleep per pt request. Admission completed, questions answered, oriented to unit.
[2023-03-15] MEDS: ACETAMINOPHEN 325 MG TABLET PO ×2 (09:42→15:14)
[2023-03-15] MEDS: OXYCODONE 5 MG TABLET PO ×5 (09:43→21:24)
[2023-03-15] MEDS: METFORMIN ER 500 MG 1000 MG PO ×2 (09:44→21:18)
[2023-03-15] MEDS: CELECOXIB 200 MG CAPSULE PO (09:44)
[2023-03-15] MEDS: LOSARTAN POTASSIUM 50 MG TABLET PO ×2 (09:45→21:18)
[2023-03-15] MEDS: hydroCHLOROthiazide 25 MG TABLET PO (09:45)
--- NOTE | 2023-03-15 13:02 | PM.IMPN1 ---
Progress Note: A&P Assessment and plan (1) Fracture, humerus, neck: Problem details: Initial management plan is nonsurgical with immobilization and pain control. So far pain has been fairly severe and associated disability is a significant barrier. Will continue to adjust medications and work with therapy to address these issues Status: Acute (2) Abrasion: Problem details: Left knee abrasion and skin tear. 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 Status: Acute (4) Lung nodule: Problem details: Noted on right shoulder CT 03/14/2023. Recommended to get dedicated chest CT. Arrange for this as an outpatient after humeral fracture has improved Status: Acute (5) Obstructive sleep apnea: Problem details: will bring in home CPAP Status: Acute Plan Continue in-hospital for better pain management and therapy to work to address disabilities. Time Spent With Patient Total time spent: Total time spent today is 55 minutes, 40 minutes in coordination of care and discussing with patient other providers ongoing evaluation management of humeral fracture, chronic medical problems disability and rehab Subjective Date Seen: 03/15/23 Exam Const: Vital Signs, click to edit/add: Vital Signs - 24 hr 03/14/23 21:45 03/14/23 22:31 03/14/23 22:45 Temperature 96.2 F L Pulse Rate 71 77 Pulse Rate [Pulse Oximeter] 81 Pulse Rate [Right Radial] Respiratory Rate 22 Blood Pressure Blood Pressure [Le ft Arm] Blood Pressure [Le ft Upper Arm] 178/77 H Pulse Oximetry 96 96 94 Oxygen Delivery Me thod Room Air Oxygen Flow Rate 03/14/23 23:13 03/14/23 23:15 03/14/23 23:30 Temperature Pulse Rate 78 81 73 Pulse Rate [Pulse Oximeter] Pulse Rate [Right Radial] Respiratory Rate Blood Pressure Blood Pressure [Le ft Arm] Blood Pressure [Le ft Upper Arm] Pulse Oximetry 95 96 94 Oxygen Delivery Me thod Oxygen Flow Rate 03/14/23 23:52 03/15/23 00:00 03/15/23 00:15 Temperature Pulse Rate 86 73 75 Pulse Rate [Pulse Oximeter] Pulse Rate [Right Radial] Respiratory Rate Blood Pressure Blood Pressure [Le ft Arm] Blood Pressure [Le ft Upper Arm] Pulse Oximetry 95 96 94 Oxygen Delivery Me thod Oxygen Flow Rate 03/15/23 01:31 03/15/23 01:32 03/15/23 01:45 Temperature Pulse Rate 81 78 82 Pulse Rate [Pulse Oximeter] Pulse Rate [Right Radial] Respiratory Rate Blood Pressure 130/69 Blood Pressure [Le ft Arm] Blood Pressure [Le ft Upper Arm] Pulse Oximetry 93 95 91 Oxygen Delivery Me thod Oxygen Flow Rate 03/15/23 02:00 03/15/23 02:00 03/15/23 02:45 Temperature 98.7 F Pulse Rate 78 Pulse Rate [Pulse Oximeter] 72 Pulse Rate [Right Radial] Respiratory Rate 20 Blood Pressure Blood Pressure [Le ft Arm] 160/71 H Blood Pressure [Le ft Upper Arm] Pulse Oximetry 88 88 96 Oxygen Delivery Me thod Nasal Cannula Nasal Cannula Room Air Oxygen Flow Rate 2 2 03/15/23 02:45 03/15/23 10:00 03/15/23 11:00 Temperature 97 F L Pulse Rate Pulse Rate [Pulse Oximeter] Pulse Rate [Right Radial] 80 Respiratory Rate 22 16 14 Blood Pressure Blood Pressure [Le ft Arm] 139/78 Blood Pressure [Le ft Upper Arm] Pulse Oximetry 88 95 95 Oxygen Delivery Me thod Nasal Cannula Room Air Room Air Oxygen Flow Rate 2 03/15/23 12:16 Temperature Pulse Rate Pulse Rate [Pulse Oximeter] Pulse Rate [Right Radial] Respiratory Rate Blood Pressure Blood Pressure [Le ft Arm] Blood Pressure [Le ft Upper Arm] Pulse Oximetry 95 Oxygen Delivery Me thod Room Air Oxygen Flow Rate
--- NOTE | 2023-03-15 13:22 | ONC.NURNOTE ---
Addendum entered by Cathy Sheets RN 03/15/23 13:30: 11am blood sugar per pts arm reader and before eating 191. po diabetic med and sq Lantus given per pts. oking the dose. Original Note: woke up this am at 945 with pain of 8-10 oxycontin 10mg and tylenol given with a little relief. Pain at 6. Dilaudid 0.5 given. pain at 4 and tolerable per pt. 1245 pain at 8, oxycontin 10mg given with relief. alert and oriented. vs remain wnl. ls clear. heart reg. shoulder immobolizer and ice with better relief of discomfort. bruised upper arm. good cwms RUE. PT/OT with pt. suggesting Home health care. Prob. discharge to home tomorrow. good po intake and voided x2. steady when up. family supportive. bringing in CPCP. sats remain 95 RA WA.
[2023-03-16] VITALS (8 sets, daily range): BP systolic 131–164; BP diastolic 70–87; PULSE 64–76; RESP 16–20; TEMP 36.6–37.2; O2SAT 92–97
[2023-03-16] MEDS: OXYCODONE 5 MG TABLET PO ×2 (03:16→08:43)
--- NOTE | 2023-03-16 06:25 | PC.NURSE ---
Shift note: Pt rates pain 4-6/10, RN treated per eMAR and pt was able to rest. Affected extremity is warm, skin is dry, pulses strong, sensations are present. She has had a brief moment of nausea with emesis after walking to the bathroom, which resolved with rest and saltine crackers.
[2023-03-16] MEDS: ACETAMINOPHEN 325 MG TABLET PO ×2 (08:44→22:12)
[2023-03-16] MEDS: SODIUM CHLORIDE 0.9 % (FLUSH) 10 ML SYRINGE 5 ML IVF ×2 (08:44→21:20)
[2023-03-16] MEDS: METFORMIN ER 500 MG 1000 MG PO ×2 (08:44→20:44)
[2023-03-16] MEDS: CELECOXIB 200 MG CAPSULE PO (08:45)
[2023-03-16] MEDS: ASPIRIN 81 MG TABLET EC PO (08:46)
[2023-03-16] MEDS: LOSARTAN POTASSIUM 50 MG TABLET PO ×2 (08:46→20:44)
[2023-03-16] MEDS: hydroCHLOROthiazide 25 MG TABLET PO (08:47)
--- NOTE | 2023-03-16 11:27 | PC.NURSE ---
No dysphagia with meds. Please see eMar for prn pain meds provided to this patient and scheduled meds. Poor appetite noted. Pt has a shoulder immobilizer in place d/to fracture s/p fall @ her home. Non-surgical treatment is planned. Dr. Razo plans to keep patient one more night. Pt states her head feels loopy. New order to decrease dose of oxycodone to 2.5-5mg initiated per Dr. Razo's order on morning rounds. Pt working with Carolann PT at this time. BG 175 prior to bkfst, pt received 3 units of Novolog insulin from sliding scale in addition to 15 units of Levemir scheduled insulin. She has a dexcom monitor to keep track of her blood glucose throughout the day. Pt wears CPAP when she sleeps/naps d/to hx of JAYLON. Pt reported some nerve pain radiating down the back of her right arm midmorning, RN will continue to monitor patient's pain level.
--- NOTE | 2023-03-16 12:29 | P.IMPN_ITS ---
Progress Note: A&P Assessment and plan (1) Fracture, humerus, neck: Problem details: Initial management plan is nonsurgical with immobilization and pain control. So far pain has been fairly severe and associated disability is a significant barrier. Will continue to adjust medications and work with therapy to address these issues Status: Acute (2) Abrasion: Problem details: Left knee abrasion and skin tear. 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 Status: Acute (4) Lung nodule: Problem details: Noted on right shoulder CT 03/14/2023. Recommended to get dedicated chest CT. Arrange for this as an outpatient after humeral fracture has improved Status: Acute (5) Obstructive sleep apnea: Problem details: Patient using home CPAP. Status: Acute Plan Continue in-hospital to adjust medications to address pain as well as side effects of medications including lightheadedness and nausea. Anticipate discharge to home tomorrow Time Spent With Patient Total time spent: Total time spent today is 35 minutes, 30 minutes in coordination of care and dis cussing with patient and other providers management of humerus fracture and disposition Subjective Date Seen: 03/16/23 Interval history: 77-year-old female admitted through the emergency department after a fall at home. She had an accidental trip without loss of consciousness injuring her left knee and right upper arm. Her son-in-law who is a EMT quickly identified a serious injury to her right humerus, stabilized her arm, and brought her to the emergency room. Evaluation there showed a displaced humerus fracture. No left lower extremity bony injury. She initially had quite severe pain and was admitted the hospital for pain control. Her pain is improved. Pain medicines appear to be working though they are causing her significant nausea and lightheadedness. She did have an emesis this morning as well. She is not having abdominal pain. She was in a sling and has been switched to at shoulder immobilizer which appears to be more comfortable and working better for her. Exam Narrative: Exam Narrative: She is alert and appears in no obvious distress. Respirations are clear to auscultation. Right upper extremity has marked swelling from the shoulder to the elbow. Significant bruising is beginning to appear as well. She has no pain from the elbow to the fingertips. Intact pulses. Intact sensation and strength and motion in her fingers. Const: Vital Signs, click to edit/add: Vital Signs - 24 hr 03/15/23 15:20 03/15/23 15:20 03/15/23 15:20 Temperature 97.8 F Pulse Rate [Left A pical] Pulse Rate [Pulse Oximeter] Pulse Rate [Right Radial] 68 Respiratory Rate 18 18 18 Blood Pressure [Le ft Arm] 136/66 Pulse Oximetry 94 94 Oxygen Delivery Me thod Room Air Room Air 03/15/23 19:00 03/15/23 23:00 03/15/23 23:00 Temperature 98.7 F Pulse Rate [Left A pical] Pulse Rate [Pulse Oximeter] 67 62 Pulse Rate [Right Radial] 67 Respiratory Rate 18 18 18 Blood Pressure [Le ft Arm] 142/71 H Pulse Oximetry 95 95 Oxygen Delivery Me thod CPAP CPAP 03/15/23 23:00 03/16/23 03:00 03/16/23 07:35 Temperature 98.3 F Pulse Rate [Left A pical] Pulse Rate [Pulse Oximeter] 62 76 Pulse Rate [Right Radial] 76 Respiratory Rate 18 20 20 Blood Pressure [Le ft Arm] 164/86 H Pulse Oximetry 95 95 96 Oxygen Delivery Me thod CPAP CPAP Room Air 03/16/23 07:35 03/16/23 11:00 Temperature 98.8 F 98.8 F Pulse Rate [Left A pical] 64 69 Pulse Rate [Pulse Oximeter] 64 69 Pulse Rate [Right Radial] 64 Respiratory Rate 20 20 Blood Pressure [Le ft Arm] 131/87 154/80 H Pulse Oximetry 96 97 Oxygen Delivery Me thod Room Air Room Air Documenting provider has reviewed patient's vital signs: yes
--- NOTE | 2023-03-16 13:59 | PC.NURSE ---
BG 160 before lunch, pt refused SS insulin dose. Continue POC. Report will be provided to oncoming shift RN.
[2023-03-16] MEDS: ONDANSETRON ODT 4 MG TAB PO (19:32)
[2023-03-16] MEDS: ROSUVASTATIN CALCIUM 10 MG TABLET 5 MG PO (20:44)
--- NOTE | 2023-03-16 20:59 | PC.NURSE ---
Shift Summary: Patient pleasant and cooperative. Up with SBA. Vitals stable and WNL. Pain 3/10 throughout shift, refusing medication, using ice pack on and off. Refused sliding scale insulin. C/o nausea this evening after dinner, bowel sounds present and patient states shes passing gas. MD updated and new order for zofran given, patient verbalized relief.
[2023-03-17 00:09] VITALS: TEMP 36.6
[2023-03-17 02:45] VITALS: BP 126/69; PULSE 68; RESP 16; TEMP 36.6; O2SAT 96
[2023-03-17] MEDS: ACETAMINOPHEN 325 MG TABLET PO (06:01)
[2023-03-17 07:32] VITALS: BP 129/65; PULSE 61; RESP 16; TEMP 36.8; O2SAT 93
[2023-03-17 08:44] VITALS: O2SAT 96
[2023-03-17] MEDS: METFORMIN ER 500 MG 1000 MG PO (08:49)
[2023-03-17] MEDS: SODIUM CHLORIDE 0.9 % (FLUSH) 10 ML SYRINGE 5 ML IVF (08:49)
[2023-03-17] MEDS: hydroCHLOROthiazide 25 MG TABLET PO (08:50)
[2023-03-17] MEDS: CELECOXIB 200 MG CAPSULE PO (08:50)
[2023-03-17] MEDS: LOSARTAN POTASSIUM 50 MG TABLET PO (08:50)
[2023-03-17] MEDS: ASPIRIN 81 MG TABLET EC PO (08:50)
[2023-03-17 11:17] VITALS: BP 132/63; PULSE 64; RESP 16; TEMP 37.2; O2SAT 95
[2023-03-17] MEDS: ONDANSETRON ODT 4 MG TAB PO (11:59)
[2023-03-17] MEDS: OXYCODONE 5 MG TABLET PO (11:59)
--- NOTE | 2023-03-17 13:32 | PM.DS1 ---
DS: Providers Provider Date Seen: 03/17/23 Date of admission: 03/15/23 02:11 Primary care physician: Trista Lin MD Admitting Clinician: Elvi Gonzalez MD Attending Physician on discharge: Koffi Razo MD Date of Discharge: 03/17/23 DS: Diagnosis Discharge Diagnosis (1) Fracture, humerus, neck: Status: Acute Problem details: Initial management plan is nonsurgical with immobilization and pain control. So far pain has been fairly severe and associated disability is a significant. Marked improvement in pain and mobility in the last 2 days. Plan for discharge to home with outpatient orthopedic surgery follow-up next week. (2) Obstructive sleep apnea: Status: Acute Problem details: Patient using home CPAP. Caution with opioid pain medicine (3) Lung nodule: Status: Acute Problem details: Noted on right shoulder CT 03/14/2023. Nonsmoker. Recommended to get dedicated chest CT. Arrange for this as an outpatient after humeral fracture has improved. (4) Pain: Status: Acute Problem details: Pain was quite severe initially requiring moderate dose of opioids. Now needing minimal opioid therapy in the last day. DS: Summary Hospital Course Hospital Course: 77-year-old female had an accidental fall at home sustaining a right humeral fracture. She has mid to the hospital for pain control and to address marked disability associated with this injury. Over the subsequent 2 days in the hospital her pain has gotten much better and she is also now able to stand and ambulate and do some ADLs independently. She has had no other complications related to her injury or her other medical problems. Status at Discharge Functional status at discharge: independent ambulation Overall status at discharge: patient is progressing back to baseline Time Spent with Patient Time attestation: Total time spent providing and/or coordinating discharge services: Time spent: Greater than 30 minutes Exam Narrative: Exam Narrative: She is alert and appears in no distress. She is observed to walk in the hallway and move in her bed without significant discomfort. Arm is in shoulder immobilizer. Right upper arm has moderate swelling with bruising present. Forearm wrist and hand are normal without tenderness. She has intact sensation pulses strength and motion in her fingers and wrist. Const: Vital Signs, click to edit/add: Vital Signs - 24 hr 03/16/23 15:33 03/16/23 15:33 03/16/23 19:06 Temperature 99 F 99 F Pulse Rate [Left A pical] 72 74 Pulse Rate [Pulse Oximeter] Respiratory Rate 16 16 16 Blood Pressure [Le ft Arm] 145/74 H 134/74 Pulse Oximetry 97 97 92 Oxygen Delivery Me thod Room Air Room Air Room Air Oxygen Flow Rate 03/16/23 23:40 03/16/23 23:43 03/16/23 23:45 Temperature 98 F Pulse Rate [Left A pical] 74 Pulse Rate [Pulse Oximeter] 74 74 Respiratory Rate 16 16 16 Blood Pressure [Le ft Arm] 133/70 Pulse Oximetry 96 96 Oxygen Delivery Me thod Room Air Room Air Oxygen Flow Rate 0 0 03/17/23 00:09 03/17/23 02:45 03/17/23 07:32 Temperature 98 F 98 F 98.2 F Pulse Rate [Left A pical] 68 Pulse Rate [Pulse Oximeter] 68 61 Respiratory Rate 16 16 Blood Pressure [Le ft Arm] 126/69 129/65 Pulse Oximetry 96 93 Oxygen Delivery Me thod Room Air CPAP Oxygen Flow Rate 0 03/17/23 08:44 03/17/23 11:17 Temperature 98.9 F Pulse Rate [Left A pical] Pulse Rate [Pulse Oximeter] 64 Respiratory Rate 16 Blood Pressure [Le ft Arm] 132/63 Pulse Oximetry 96 95 Oxygen Delivery Me thod Room Air Room Air Oxygen Flow Rate Documenting provider has reviewed patient's vital signs: yes DS: Data Imaging CT- Other: Radiologist's impression: CT right shoulder Indication: Fracture evaluation Technique: Noncontrast CT of the right shoulder. Permanently recorded images are archived. Please note that all CT scans at this facility use dose modulation, iterative reconstruction, and/or weight-based dosing when appropriate to reduce radiation dose to as low as reasonably achievable. Comparison: Right shoulder radiographs 03/14/2023 Findings: There is a comminuted, medial apex angulated and moderately displaced right proximal humeral neck fracture. Mild surrounding hemorrhage. No other fracture identified. The glenohumeral joint is congruent. Mild acromioclavicular joint degenerative changes. Inflammatory stranding/edema overlying the right humerus. 9 mm right lower lobe pulmonary nodule. Right middle lobe calcified granuloma. Impression: Comminuted, medial apex angulated and moderately displaced right proximal humeral neck fracture 9 mm right lower lobe pulmonary nodule. Recommend dedicated chest CT for further evaluation. Discharge Plan Discharge Disposition: Home, Self-Care Date of Admission: 03/15/23 02:11 Attending Provider on Discharge: Hayden Razo Consulting Providers: Jorge Rubin Primary Care Provider: Trista Lin Condition: Stable Anticipated Discharge Date/Time: 03/17/23 11:42 Discharge Medications: New celecoxib 200 mg Capsule 200 mg PO DAILY Qty: 10 0RF acetaminophen 500 mg capsule 1,000 mg PO TID PRNQty: 100 0RF sennosides [Senna Lax] 8.6 mg tablet 8.6 mg PO BID PRN (Reason: constipation) Qty: 30 0RF oxycodone 5 mg tablet 5 mg PO Q6H PRN (Reason: pain) Qty: 14 0RF Continued calcium carbonate-vitamin D3 600 mg-20 mcg (800 unit) tablet 1 tab PO DAILY multivitamin [Multiple Vitamins] Tablet 1 tab PO QAM aspirin [Adult Low Dose Aspirin] 81 mg tablet,delayed release (DR/EC) 81 mg PO HS (DME) pen needle, diabetic [BD Ultra-Fine Short Pen Needle] 31 gauge x 5/16 needle See Rx Instructions .Route Rx Instructions: As directed (DME) lancets [Accu-Chek Fastclix Lancet Drum] Misc See Rx Instructions .Route Rx Instructions: As directed Ozempic 0.25 mg or 0.5 mg (2 mg/3 mL) pen injector 0.25 mg subcut QWEEK Qty: 3 0RF Rx Instructions: for 4 weeks Ozempic 0.25 mg or 0.5 mg (2 mg/3 mL) pen injector 0.5 mg subcut QWEEK 28 Days Qty: 3.2 2RF Patient Comments: TAKES ON THURSDAY cholecalciferol (vitamin D3) 50 mcg (2,000 unit) tablet 50 mcg PO DAILY betamethasone, augmented 0.05 % cream 1 applic topical BID PRN insulin lispro [Humalog KwikPen Insulin] 100 unit/mL insulin pen 10 unit subcut TIDWMEAL PRN Patient Comments: Only takes if blood sugar is too high rosuvastatin 5 mg tablet 5 mg PO HS amoxicillin 500 mg capsule 2,000 mg PO ONCE Qty: 4 3RF Rx Instructions: Take 4 capsules (2000mg) 1 hour prior to dental appointment. alendronate 70 mg tablet 70 mg PO .Every 7 Days Qty: 12 2RF Patient Comments: Takes on Thursday mornings losartan 50 mg tablet 50 mg PO BID Qty: 180 2RF hydrochlorothiazide 25 mg tablet 25 mg PO DAILY Qty: 90 1RF (DME) Blood Glucose Meter Misc See Rx Instructions .Route Qty: 1 0RF Rx Instructions: check 2-3 times a day (DME) Accu-Chek [place] Plus test strp Strip See Rx Instructions .Route Qty: 100 3RF Rx Instructions: As directed, to check blood sugar 3 times a day (DME) FreeStyle Johnnie 2 [place] Misc See Rx Instructions .Route Qty: 3 6RF Rx Instructions: Measure 2-4 times daily (DME) FreeStyle Johnnie 2 Sensor Kit See Rx Instructions .Route Qty: 3 6RF Rx Instructions: Measure 2-4 times daily metformin 500 mg tablet extended release 24 hr 1,000 mg PO BID Qty: 360 0RF insulin glargine [Lantus U-100 Insulin] 100 unit/mL solution 20 unit subcut BID Discharge Orders: Discharge Order (Routine); Ordered 03/17/23 Ordered By: Hayden Razo Patient Education: Acetaminophen (By mouth), Oxycodone, Rapid Release (By mouth), Celecoxib (By mouth), Senna (By mouth), Arm Fracture in Adults (DC) Additional Instructions: Arranged follow-up with the orthopedic surgeon of your choice next week. See Dr. Lin in about 2 weeks. Talk to her about arranging a chest CT scan for your pulmonary nodule. Activity Level: Activity as Tolerated and Wear Brace Discharge Diet: Regular Follow Up Appointments: Trista Lin MD [Primary Care Provider] - 03/27/23 1:30 pm ([facility] for follow-up.) Forms: [employer] Info Instructions
--- NOTE | 2023-03-17 13:35 | PC.NURSE ---
Discharge note: Patient discharged home with her daughter, home health services to follow up with patient. All education, follow up appointments were scheduled, and medications were reviewed. R arm is in brace. Discharged @ 1315 via wheelchair.
--- NOTE | 2023-03-17 13:46 | PC.SOCIAL ---
Addendum entered by TOMMIE Holcomb 03/17/23 15:19: Received an e-mail from [facility], [facility]. The agency accepted the referral and will reach out to the family to set up the initial home visit. Phone call to pt and provided her the information via e-mail ([email or web address] ([email or web address])). Phone call to pt's daughter (Seble) and provided her with information on home care. Original Note: Discharge planning- Pt is needing home care for nursing, PT, and OT. Received face to face from MD with home care order. Phone call to [facility] to [facility] (Ext. [phone]) to see if they had openings for home care this week. There are no openings at this time. Phone call to [facility] ([phone]) to see if they have home care openings. Codi requested that this worker e-mail referral to verify insurance and assess to see if they can meet pt's needs. Secure e-mailed referral to Codi at [email or web address]. Social work will follow up as needed.
== END 2023-03-17 13:15 | disposition home or self-care (01) ==
LOC: ED 03-15 01:32 → MEDSURG 03-15 02:11
PROVIDERS: Admitting Provider Family Medicine; Emergency Provider Family Medicine; PCP Family Medicine; Visit Provider Family Medicine
DX: S42.211A Unspecified displaced fracture of surgical neck of right humerus, initial encounter for closed fracture (principal); S80.212A Abrasion, left knee, initial encounter; R22.31 Localized swelling, mass and lump, right upper limb; M25.511 Pain in right shoulder; M79.9 Soft tissue disorder, unspecified; R20.0 Anesthesia of skin; E11.29 Type 2 diabetes mellitus with other diabetic kidney complication; R80.9 Proteinuria, unspecified; R91.1 Solitary pulmonary nodule; G47.33 Obstructive sleep apnea (adult) (pediatric); I10 Essential (primary) hypertension; E78.5 Hyperlipidemia, unspecified; W19.XXXA Unspecified fall, initial encounter; Z79.891 Long term (current) use of opiate analgesic; Z79.82 Long term (current) use of aspirin; Z79.4 Long term (current) use of insulin; Z79.84 Long term (current) use of oral hypoglycemic drugs; Z98.890 Other specified postprocedural states; Z90.5 Acquired absence of kidney; Z90.710 Acquired absence of both cervix and uterus; Z90.722 Acquired absence of ovaries, bilateral; Z90.79 Acquired absence of other genital organ(s); Z98.42 Cataract extraction status, left eye; Z98.41 Cataract extraction status, right eye; Z96.652 Presence of left artificial knee joint; Z87.19 Personal history of other diseases of the digestive system; Z87.891 Personal history of nicotine dependence; Z99.89 Dependence on other enabling machines and devices; S42.291A Other displaced fracture of upper end of right humerus, initial encounter for closed fracture
CPT/HCPCS: 12001; 73030; 73200; 73560; 82962; 96361; 96372; 96374; 96375; 96376; 97110; 97116; 97161; 97165; 97530; 97535; 99284; 99285; A9270; G0378; J1170; J3010; J7030

== ENCOUNTER 2023-04-13 09:07 | Outpatient (CLI) | payer MEDICARE, OTHER, SELFPAY | END 2023-04-13 09:08 | disposition home or self-care (01) | LOC: NFLDREF 04-15 10:51 | PROVIDERS: PCP Family Medicine; Referring Provider Family Medicine; Visit Provider Family Medicine | DX: I10 Essential (primary) hypertension (principal); E11.29 Type 2 diabetes mellitus with other diabetic kidney complication; R80.9 Proteinuria, unspecified; Z79.4 Long term (current) use of insulin | CPT/HCPCS: 80053 ==

== ENCOUNTER 2023-05-25 13:44 | Outpatient (CLI) | payer MEDICARE, OTHER, SELFPAY | END 2023-05-25 13:45 | disposition home or self-care (01) | LOC: RAD 13:45 | PROVIDERS: PCP Family Medicine; Visit Provider Family Medicine | DX: R01.1 Cardiac murmur, unspecified (principal); I35.1 Nonrheumatic aortic (valve) insufficiency | CPT/HCPCS: 93306 ==

== ENCOUNTER 2023-06-15 09:39 | Outpatient (CLI) | payer MEDICARE, OTHER, SELFPAY ==
--- NOTE | 2023-06-15 09:30 | CRLHL7_ITS ---
For Patients: As a result of the Century Cures Act, medical imaging exams and procedure reports are released immediately into your electronic medical record. You may view this report before your referring provider. If you have questions, please contact your health care provider. Indication: PULMONARY NODULE FOLLOWUP Technique: Noncontrast CT chest Please note that all CT scans at this facility use dose modulation, iterative reconstruction, and/or weight-based dosing when appropriate to reduce radiation dose to as low as reasonably achievable. Comparison: 12/27/2018, 03/15/2023 Findings: 9 millimeter pulmonary nodule right lower lobe. Previously, this measured 5 millimeters in 2019. Calcified nodule within the medial aspect of the right middle lobe. Scarring in the lower lobes bilaterally. No large thyroid nodule. Atherosclerotic changes. Calcified lymph nodes are present representing sequela of granulomatous disease. Calcified splenic granulomas are present. Simple cyst left kidney is present. Displaced and comminuted right proximal humeral fracture. Impression: Sequela of granulomatous disease. 9 millimeter noncalcified right lower lobe pulmonary nodule. Follow-up noncontrast CT chest in 6 months recommended. Displaced and comminuted right proximal humeral fracture. Please note that all CT scans at this facility use dose modulation, iterative reconstruction, and/or weight-based dosing when appropriate to reduce radiation dose to as low as reasonably achievable. Dictated by Narinder Perry MD @ 06/16/2023 12:57:50 PM (Electronically Signed)
== END 2023-06-15 09:40 | disposition home or self-care (01) ==
LOC: CT 09:41
PROVIDERS: PCP Family Medicine; Visit Provider Family Medicine
DX: R91.1 Solitary pulmonary nodule (principal); S42.201A Unspecified fracture of upper end of right humerus, initial encounter for closed fracture
CPT/HCPCS: 71250

== ENCOUNTER 2023-10-26 07:58 | Outpatient (CLI) | payer MEDICARE, OTHER, SELFPAY ==
--- OUTSIDE RECORDS SUMMARY | 2023-10-28 07:39 | XMS_ITS | Clinical Summary ---
Author Name Unknown Organization [facility] Address [place], [place] [address] Care Team Providers Care Lobby Porter Name Role Phone Konstantin Pak MD Primary Care Provider [phone] Allergies Active Allergy Reactions Criticality Noted Date Comments Bacitracin 12/24/2006 Hymenoptera Allergenic Extract Anaphylaxis High 03/2007 Cephalexin *Unknown 12/05/2014 Medications Medication Sig Dispensed Refills Start Date End Date Status ASPIRIN 81 MG TAB, DELAYED RELEASE take 1 tablet (81 mg) by oral route once daily 0 12/24/2006 Active MULTIVITAMIN TAB take 1 tablet by oral route once daily with food 0 12/24/2006 Active GLUCOSAMINE 1500 COMPLEX 500 MG-400 MG CAP one tab daily, every other day two tabs 0 12/24/2006 Active metFORMIN (GLUCOPHAGE) 250 mg as half tablet Take 250 mg by mouth 2 times daily with meals. Active rx EPINEPHrine (EPIPEN) 0.3 mg/0.3 mL injection (ED [place] MED) Inject 1 Each intramuscular one time if needed for Allergic Reaction. Active hydrochlorothiazide (HCTZ) 25 mg tablet Take 25 mg by mouth once daily. Active amLODIPine (NORVASC) 5 mg tablet Take 5 mg by mouth once daily. Active calcium carbonate-vitamin D3, 600 mg-400 unit, (CALCIUM WITH VITAMIN D) 600 mg(1,500mg) -400 unit tablet Take 1 tablet by mouth once daily with a meal. Active Cyanocobalamin (VITAMIN B-12) 2,000 mcg tablet Take 2,000 mcg by mouth once daily. Active Mv,Ca,Zqa-ZW-Zuirde No.157 (ESTROVEN MAXIMUM STRENGTH) 400 mcg tab Take 1 tablet by mouth once daily. Active Family History Medical History Relation Name Comments Genetic Other cancer-father~h ypertension-mother~cataracts-mother~stro ke-mother~lazy eye-brother Relation Name Status Comments Other Social History Tobacco Use Types Packs/Day Years Used Date Smoking Tobacco: Never Smokeless Tobacco: Never Alcohol Use Standard Drinks/Week Comments No 0 (1 standard drink = 0.6 oz pur e alcohol) RARE Sex and Gender Information Value Date Recorded Sex Assigned at Not on file Gender Identity Not on file Sexual Orientation Not on file Obstetrics History Last Filed Vital Signs Vital Sign Reading Time Taken Comments Blood Pressure 133/74 12/07/2014 8:55 AM CDT Pulse 54 12/07/2014 8:55 AM CDT Temperature 36.7 ??C (98.1 ??F) 12/07/2014 8:10 AM CD T Respiratory Rate 16 12/07/2014 8:55 AM CDT Oxygen Saturation 93% 12/07/2014 8:55 AM CDT Inhaled Oxygen Concentration - - Weight 95 kg (209 lb 7 oz) 12/07/2014 6:28 AM CD T Height 171.5 cm (5' 7.5) 12/07/2014 6:28 AM CDT Body Mass Index 32.32 12/07/2014 6:28 AM CDT Plan of Treatment Health Maintenance Due Date Last Done Comments Tdap 1957 Depression screening for age 12+ 1958 BMI (ht and wt on same day) for age 18+ 1964 Hepatitis C screening for ag e 18-79 1964 Tetanus booster 1966 Zoster (shingles) series for age 50+ (1 of 2) 1996 DEXA/DXA scan for age 65+ 11/17/2011 Pneumococcal series for age 65+ (1 of 1 - PCV) 11/17/2011 Influenza for age 65+ 03/13/2024 COVID-19 vaccine series Completed 05/04/20, 04/21/2022, 10/10/2021, Additional history exists Medical Devices Implanted Type Area Safety Leader Device Identifier Shelf Expiration Date Model / Serial / Lot Lens Iol Toric Iq At3 22.5 - [id number] Implanted:Qty: 1 on 11/21/2014 by Isael Suazo MD at [facility] Left: Eye [employer] 12/10/2018 SN6AT3# / [id number] / Lens Iol Toric Iq At5 22.5 - [id number] Implanted:Qty: 1 on 12/07/2014 by Isael Suazo MD at [facility] Right: Eye [employer] 09/10/2019 SN6AT5# / [id number] / Advance Directives Documents on File Type Date Recorded 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
== END 2023-10-26 07:59 | disposition home or self-care (01) ==
LOC: NFLDREF 10-28 07:38
PROVIDERS: PCP Physician Assistant Medical; Referring Provider Physician Assistant Medical; Visit Provider Physician Assistant Medical
DX: I10 Essential (primary) hypertension (principal); E78.5 Hyperlipidemia, unspecified; E11.29 Type 2 diabetes mellitus with other diabetic kidney complication; R80.9 Proteinuria, unspecified; Z79.4 Long term (current) use of insulin
CPT/HCPCS: 80053; 80061; 82043; 82570

== ENCOUNTER 2023-11-11 13:47 | Outpatient (CLI) | payer MEDICARE, OTHER, SELFPAY ==
--- OUTSIDE RECORDS SUMMARY | 2023-11-11 13:50 | XMS_ITS | Clinical Summary ---
Author Name Unknown Organization [facility] Address [place], [place] [address] Care Team Providers Care Shipping And Receiving Assistant Name Role Phone Konstantin Pak MD Primary Care Provider [phone] Allergies Active Allergy Reactions Criticality Noted Date [...] EPINEPHrine (EPIPEN) 0.3 mg/0.3 mL injection (ED [place] MED) Inject 1 Each intramuscular one time [...] 2,000 mcg by mouth once daily. Active Mv,Ca,Xcu-JL-Orwjun No.157 (ESTROVEN MAXIMUM STRENGTH) 400 mcg tab [...] history exists Medical Devices Implanted Type Area Veneer Splicer Device Identifier Shelf Expiration Date Model / Serial / Lot Lens Iol Toric Iq At3 22.5 - [id number] Implanted:Qty: 1 on 11/21/2014 by Isael Suazo MD at [facility] Left: Eye [employer] 12/10/2018 SN6AT3# / [id number] / Lens Iol Toric Iq At5 22.5 - [id number] Implanted:Qty: 1 on 12/07/2014 by Isael Suazo MD at [facility] Right: Eye [employer] 09/10/2019 SN6AT5# / [id number] / Advance Directives Documents on File Type Date Recorded 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
--- NOTE | 2023-11-11 14:00 | XR_ITS ---
Patient: RUSS TOMAS Facility:?[facility] Patient ID:?[id number] Site Patient ID:?[id number]. Site :?[id number] Study:?DEXA-Bone Density -11/11/2023 3:54:05 PM Ordering Physician:RENA Final Report: DXA BONE MINERAL DENSITY STUDY Reason for exam: Age-related osteoporosis without current pathology. Current height (in): 67. Weight (lb): 213. Menopause age: 44. Ethnicity: White. 1. Have you had a previous hip or vertebral fracture? No. 2. Have you had any fractures during your adult life which did not result from significant trauma (e.g., auto accident)? Yes. 3. Did either of your parents have a hip fracture? No. 4. Do you smoke? No. 5. Have you ever taken Glucocorticoids? No. 6. Do you have rheumatoid arthritis? No. 7. Do you have secondary osteoporosis? No. 8. Do you drink 3 or more alcoholic drinks per day? No. 9. Are you being treated for osteoporosis? No. 10. Have you ever taken any of the following medications: Actonel, Evista, Fosamax, Miacalcin, Reclast, Boniva, Forteo, HRT (i.e., estrogen/hormone therapy), Protelos, Prolia, Vitamin D, Calcium, other ? please specify. ANSWER: Yes, calcium. 11. Do you have any of the following medical conditions: Anorexia or bulimia, asthma or emphysema, end stage renal disease, hyperparathyroidism, any seizure disorders, cancer, inflammatory bowel diseases, hysterectomy, other ? please specify. ANSWER: Yes, hysterectomy. 12. What was your maximum height (inches)? 67.5. 13. Do you perform weight bearing exercise regularly? No. 14. Do you regularly consume dairy products? Yes. 15. Do you drink caffeinated beverages? Yes. 16. At what age did your period start? 14. 17. Are you premenopausal? No. 18. How many full-term pregnancies have you had? 2. 19. Have you ever missed your period for more than 6 months in a row (not including or menopause)? No. TECHNIQUE: Bone mineral density study was performed using the [employer]. FINDINGS: The results of the study expressed as bone mineral density (BMD) are as follows: Lumbar spine L1, L2, L4: BMD: 1.025 g/cm2. T-score: -0.1. Z-score: 2.4 Neck Left: BMD: 0.648 g/cm2. T-score: -1.8. Z-score: 0.4 Right: BMD: 0.633 g/cm2. T-score: -1.9. Z-score: 0.2 Total Left: BMD: 0.951 g/cm2. T-score: 0.1. Z-score: 2.0 Right: BMD: 1.007 g/cm2. T-score: 0.5. Z-score: 2.4 IMPRESSION: Osteopenia. *Comparison exams done prior to 12/2019 were performed on different unit, [employer] COMPARISON: Compared with scan of 03/14/2021, the bone mineral density has increased by 11.4 percent at the spine and increased by 2.2 percent at the hip. Compared with scan of 11/17/2013, the bone mineral density has decreased by 3.3 percent at the spine and increased by 7.3 percent at the hip. FRAX 10-year Fracture Risk Major Osteoporotic Fracture: 19% Hip Fracture: 4.5% Reported Risk Factors: [place] () Neck BMD=0.633, BMI=33.4, previous fracture 33.4, previous fracture Meaghan CHAUDHARI:cristian D& Transcribed: 5:06 p.m. [email or web address] cristian/Dictated by: Frandy Hu MD @ 11/12/2023 8:44:00 AM Signed by:Lillian Hu MD @11/13/2023 7:12:35 AM (Electronic Signature)
== END 2023-11-11 13:48 | disposition home or self-care (01) ==
LOC: RAD 13:48
PROVIDERS: PCP Physician Assistant Medical; Visit Provider Physician Assistant Medical
DX: M81.0 Age-related osteoporosis without current pathological fracture (principal); M85.88 Other specified disorders of bone density and structure, other site; M85.80 Other specified disorders of bone density and structure, unspecified site
CPT/HCPCS: 77080

== ENCOUNTER 2023-12-22 14:43 | Outpatient (CLI) | payer MEDICARE, OTHER, SELFPAY ==
--- NOTE | 2023-12-22 15:00 | CRLHL7_ITS ---
For Patients: As a result of the 21st Century Cures Act, medical imaging exams and procedure reports are released immediately into your electronic medical record. You may view this report before your referring provider. If you have questions, please contact your health care provider. INDICATION: Pulmonary nodule follow-up TECHNIQUE: CT chest without contrast. COMPARISON: 06/15/2023 and 12/27/2018 chest CTs FINDINGS: Lungs and pleura: 7 mm right lower lobe pulmonary nodule image 47 series 3 is unchanged from 2022. Calcified granulomas in both lungs. No new nodules. Heart and vasculature: Heart size is normal. Mild dilation of the ascending thoracic aorta at 4 cm. Coronary artery calcifications. Lymph nodes/mediastinum: Calcified lymph nodes. No adenopathy. Chest wall: No masses. Upper abdomen: Calcified granulomas in the spleen. Bones: Unremarkable for age. IMPRESSION: 7 mm right lower lobe pulmonary nodule, not significantly changed for 6 months. FLEISCHNER SOCIETY GUIDELINES - SOLID NODULES: SINGLE LOW RISK - nodule less than 6 mm: No routine follow-up. - nodule 6-8 mm: CT at 6-12 months, then consider CT at 18-24 months. - nodule greater than 8 mm: Consider CT at 3 months, PET/CT or tissue sampling. SINGLE HIGH RISK - nodule less than 6 mm: Optional CT at 12 months. - nodule 6-8 mm: CT at 6-12 months, then CT at 18-24 months. - nodule greater than 8 mm: Consider CT at 3 months, PET/CT or tissue sampling. MULTIPLE LOW RISK - nodule less than 6 mm: No routine follow-up. - nodule 6-8 mm: CT at 3-6 months, then consider CT at 18-24 months. - nodule greater than 8 mm: CT at 3-6 months, then consider CT at 18-24 months. MULTIPLE HIGH RISK - nodule less than 6 mm: Optional CT at 12 months. - nodule 6-8 mm: CT at 3-6 months, then at 18-24 months. - nodule greater than 8 mm: CT at 3-6 months, then at 18-24 months. Please note that all CT scans at this facility use dose modulation, iterative reconstruction, and/or weight-based dosing when appropriate to reduce radiation dose to as low as reasonably achievable. Dictated by Trenton Huffman MD @ 12/23/2023 3:08:40 PM (Electronically Signed)
== END 2023-12-22 14:44 | disposition home or self-care (01) ==
LOC: CT 14:44
PROVIDERS: PCP Physician Assistant Medical; Visit Provider Physician Assistant Medical
DX: R91.1 Solitary pulmonary nodule (principal)
CPT/HCPCS: 71250

== ENCOUNTER 2024-02-10 10:33 | Outpatient (CLI) | payer MEDICARE, OTHER, SELFPAY ==
--- OUTSIDE RECORDS SUMMARY | 2024-02-10 10:36 | XMS_ITS | Clinical Summary ---
Author Organization [facility] Address [place], [place] [address] Care Team Providers Care Knotter Hand Name Role Phone Konstantin Pak MD Primary Care Provider [phone] Allergies Active Allergy Reactions Criticality Noted Date [...] rx EPINEPHrine (EPIPEN) 0.3 mg/0.3 mL injection ([facility]) Inject 1 Each intramuscular one time [...] 2,000 mcg by mouth once daily. Active Mv,Ca,Hjn-AE-Nrqyaz No.157 (ESTROVEN MAXIMUM STRENGTH) 400 mcg tab [...] 12/07/2014 6:28 AM CDT Plan of Treatment Upcoming Encounters Date Type Department Care Team (Late st Contact Info) Description 04/14/2024 1:00 PM CDT Phone Office Visit [facility] [place] [address] [phone] Nancy Singleton MD [address] [phone] Health Maintenance Due Date Last Done Comments [...] 65+ (1 of 1 - PCV) 11/17/2011 COVID-19 vaccine series (2022-24 season) 2023 05/04/2023, 04/21/2022, 10/10/2021, Additional history exists Influenza for age 65+ 03/13/2024 Medical Devices Implanted Type Area Commercial Sales Representative Device Identifier Shelf Expiration Date Model / Serial / Lot Lens Iol Toric Iq At3 22.5 - [id number] Implanted:Qty: 1 on 11/21/2014 by Isael Suazo MD at [facility] Left: Eye [employer] 12/10/2018 SN6AT3# / [id number] / Lens Iol Toric Iq At5 22.5 - [id number] Implanted:Qty: 1 on 12/07/2014 by Isael Suazo MD at [facility] Right: Eye [employer] 09/10/2019 SN6AT5# / [id number] / Advance Directives Documents on File Type Date Recorded 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
--- NOTE | 2024-02-10 10:45 | CRLHL7_ITS ---
For Patients: As a result of the Century Cures Act, medical imaging exams and procedure reports are released immediately into your electronic medical record. You may view this report before your referring provider. If you have questions, please contact your health care provider. BILATERAL SCREENING MAMMOGRAM WITH COMPUTER-AIDED DETECTION AND TOMOSYNTHESIS TECHNIQUE: CC and MLO views were obtained. These mammographic images have been obtained using full-field digital technique. These mammographic images were interpreted with the benefit of computer-aided detection. Breast Tomosynthesis was used in this interpretation. COMPARISON FILM: 08/25/17, 07/19/14, 01/08/23. FINDINGS: The breasts are heterogeneously dense, which may obscure small masses. IMPRESSION: There is no radiographic evidence for malignancy. ASSESSMENT: BI-RADS Category 2: Benign RECOMMENDATION: Routine screening mammogram in 1 year. A lay language report of this examination will be provided to the patient. Narinder Perry M.D. Diagnostic Radiologist [email or web address] SP/Dictated by: Narinder Perry MD @ 02/11/2024 11:30:00 AM (Electronically Signed)
== END 2024-02-10 10:34 | disposition home or self-care (01) ==
LOC: MAMMO 10:33
PROVIDERS: PCP Physician Assistant Medical; Visit Provider Physician Assistant Medical
DX: Z12.31 Encounter for screening mammogram for malignant neoplasm of breast (principal); R92.2 Inconclusive mammogram
CPT/HCPCS: 77063; 77067

== ENCOUNTER 2024-04-21 13:09 | Outpatient (CLI) | payer MEDICARE, OTHER, SELFPAY ==
--- OUTSIDE RECORDS SUMMARY | 2024-04-21 13:11 | XMS_ITS | Clinical Summary ---
Author Organization [facility] Address [place], [place] [address] Care Team Providers Care Gluing Pressman Name Role Phone Konstantin Pak MD Primary Care Provider [phone] [phone] Allergies Active Allergy Reactions Criticality Noted Date [...] rx EPINEPHrine (EPIPEN) 0.3 mg/0.3 mL injection ([facility]) Inject 1 Each intramuscular one time [...] 2,000 mcg by mouth once daily. Active Mv,Ca,Ywr-JW-Irwraf No.157 (ESTROVEN MAXIMUM STRENGTH) 400 mcg tab [...] 65+ (1 of 1 - PCV) 11/17/2011 RSV vaccine for adults or (1 - 1-dose 75+ series) 2021 COVID-19 vaccine series (2023- season) 2024 05/04/2023, 04/21/2022, 10/10/2021, Additional history exists Influenza for age 65+ 03/13/2024 Medical Devices Implanted Type Area International Project Engineer Device Identifier Shelf Expiration Date Model / Serial / Lot Lens Iol Toric Iq At3 22.5 - [id number] Implanted:Qty: 1 on 11/21/2014 by Isael Suazo MD at [facility] Left: Eye [employer] 12/10/2018 SN6AT3# / [id number] 7 / Lens Iol Toric Iq At5 22.5 - [id number] Implanted:Qty: 1 on 12/07/2014 by Isael Suazo MD at [facility] Right: Eye [employer] 09/10/2019 SN6AT5# / [id number] / Advance Directives Documents on File Type Date Recorded Patient Voice Coach Expl anation Healthcare Directive 01/23/2007 * Full Code (Latest Code Status on File) Date Activated Date Inactivated Comments 02/07/2008 11:23 AM 02/08/2008 2:10 AM * Full Code Date Activated Date Inactivated Comments 02/07/2008 9:01 AM 02/07/2008 11:23 AM Care Teams Gluing Pressman Relationship Specialty Start Date End Date Konstantin Pak MD [facility] [place] [address] PCP - General Family Practice 12/05/14
[2024-04-21 13:52] LABS: Creatinine* 1.1 mg/dL (0.5-1.5); Estimated Glomerular Filt Rate 52 ml/min
--- NOTE | 2024-04-21 14:00 | CRLHL7_ITS ---
For Patients: As a result of the Century Cures Act, medical imaging exams and procedure reports are released immediately into your electronic medical record. You may view this report before your referring provider. If you have questions, please contact your health care provider. Indication: HX RT RENAL CELL CARCINOMA, RT ABD SWELLING Technique: CT Abdomen/Pelvis W/ 95CC ISOVUE 370 AND WATER Please note that all CT scans at this facility use dose modulation, iterative reconstruction, and/or weight-based dosing when appropriate to reduce radiation dose to as low as reasonably achievable. Comparison: 06/19/2022 Findings: Calcified granuloma within right lung is present. Noncalcified nodule in the right lower lobe is unchanged measuring 6.6 millimeters. Mild scarring is present within both lung bases. No pleural effusion. 7 millimeter simple cyst in the left hepatic lobe. No suspicious intrahepatic mass. Numerous calcified splenic granulomas. No adrenal nodule. Simple cysts left kidney measure up to 2.1 cm. Postop changes partial right nephrectomy. Right renal cysts measure up to 1.8 cm. No hydronephrosis. No adenopathy. Pancreas normal. Gallbladder unremarkable. Normal patency of the portal vein. Atherosclerotic changes. No aneurysm. Bladder normal. Uterus absent. Normal appendix. Similar appearance of the left inguinal canal. Postop changes right inguinal hernia repair. Degenerative disc disease L3-4. Facet degeneration mid and lower lumbar spine. No fracture. Impression: Status post partial right nephrectomy. Stable bilateral simple renal cysts. No hydronephrosis. No adenopathy in the abdomen or pelvis. Sequela of granulomatous disease with numerous calcified splenic granulomas and pulmonary granulomas. Noncalcified 6.6 millimeter nodule right lower lobe, unchanged. Please note that all CT scans at this facility use dose modulation, iterative reconstruction, and/or weight-based dosing when appropriate to reduce radiation dose to as low as reasonably achievable. Dictated by Narinder Perry MD @ 04/22/2024 1:17:16 PM (Electronically Signed)
== END 2024-04-21 13:10 | disposition home or self-care (01) ==
LOC: CT 13:10
PROVIDERS: PCP Physician Assistant Medical; Visit Provider Physician Assistant Medical
DX: C64.1 Malignant neoplasm of right kidney, except renal pelvis (principal); N28.1 Cyst of kidney, acquired; R91.8 Other nonspecific abnormal finding of lung field; J84.10 Pulmonary fibrosis, unspecified
CPT/HCPCS: 36415; 74177; 82565; Q9967

== ENCOUNTER 2024-10-17 09:26 | Outpatient (CLI) | payer MEDICARE, OTHER, SELFPAY | END 2024-10-17 09:27 | disposition home or self-care (01) | LOC: NFLDREF 10-21 07:58 | PROVIDERS: PCP Physician Assistant Medical; Referring Provider Physician Assistant Medical; Visit Provider Physician Assistant Medical | DX: E11.29 Type 2 diabetes mellitus with other diabetic kidney complication (principal); R80.9 Proteinuria, unspecified; I10 Essential (primary) hypertension; E78.5 Hyperlipidemia, unspecified; E66.9 Obesity, unspecified; Z79.4 Long term (current) use of insulin | CPT/HCPCS: 80053; 80061; 82043; 82570; 84443 ==

== ENCOUNTER 2024-10-26 14:30 | Outpatient (RCR) | payer MEDICARE, OTHER, SELFPAY ==
--- NOTE | 2024-09-13 15:05 | PT.OPEX ---
PT [place] Outpatient Eval PT [facility] Outpatient Eval Start: 09/13/24 09:59 Freq: Status: Active Protocol: Document 09/13/24 09:59 MRS (Rec: 09/13/24 15:00 MRS No Response) E-signed By Malgorzata Stratton DPT Physical Therapy Outpatient Evaluation Insurance Information Recert Due Date 12/14/24 Insurance Name Other; See Comments Insurance Information/Comments [employer] Medical Diagnosis R hip pain; ITB Treating Diagnosis Pain in Hip Right M25.551 Stiffness of Hip Right M25.651 Muscle Weakness M62.81 Imaging Report Information XR Right hip= small osteophyte formations and joint space narrowing Referring MD Alex Kendrick PA-C Subjective Preferred Name Nayeli Subjective Initial subjective: Nayeli reported right hip pain starting early August with hip feeling like it would lock up or go out of joint. Pain has improved in the past month. No injury reported. PMH: DM, depression, L TKA, hernia repair, Aggravating factors: comes sporadically; no set activity. Alleviating factors: bending Work status: retired Pt goals: Eliminate pain and painful episodes from occuring . Advise Only access code: [email or web address] Pain Comments currently 0/10; at worst 2-3/ 10. Date of Last Physician Visit 09/05/24 Current Work Status Retired Precautions Weight Bearing Status Full Weight Bearing Therapy Limitations/Systems Review Not Limited Objective Range of Motion LE ROM (R/L):? -Hip Ext:?limited -hamstring length: ~80 degrees , ~85 degrees Strength LE Strength (R/L):? -Knee Ext: R: 5/5, L: 5/5? -Knee Flex: R: 5/5, L: 5/5? -Hip Abd: R: 4/5, L: 4/5? -Hip Add: R: 5/5, L: 5/5? -Hip Ext: R: 4-/5, L: 4-/5? -Hip Flx: R: 4+/5, L: 5/5? 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 Patient presents with impaired ROM due to muscle tightness, bilateral hip weakness, and pain limited functional mobility. These impairments are limiting the patients ability to complete functional mobility without fear of having hip lock or experience pain. Patient appears motivated to participate in PT and presents with good prognosis to improve mobility, strength, proprioception and return to functional activities with skilled physical therapy intervention. Educated patient on proper form and muscle activation throughout session in order to optimize muscle function and proper body mechanics. Primary Functional Limitations pain, weakness, and impaired ROM Plan of Care Rehabilitation Potential Excellent Physical Therapy Goals STG's to be met within 2-3 weeks: 1.) Pt will report a decrease in pain to 1/10 at worst. 2.) Pt will increase bilateral hip extension strength to 4+/ 5 or greater. 3.) Pt will be independent and compliant with HEP LTG's to be met in 6-8 weeks: 1.)Pt will increase bilateral hip strength to 5/5 for all motions to increase stability for activities. 2.) Pt will report pain at 0/ 10. Coordination/Communication With Referral Source Treatment Plan/Direct Interventions Manual Therapy,Neuromuscular Re-ed,Therapeutic Activities, Therapeutic Exercises Frequency/Duration 1-2x/week for 6-8 weeks Patient Will Be Discharged From Therapy Completion of LTG(s),Skills Plateau,Independent w/HEP, Independently Progressing Evaluation Billing Untimed Code Treatment Minutes 15 PT Eval No Charge No Complexity Low Certification Information Initial Certification Date 09/13/24 Ending Certification Date 12/14/24 Provider Signature Required Yes Provider Signature Shows Agreement With POC & Medical Necessity Physician NPI Number Write NPI# Here Physician Comment/Change : Physician Signature & Date Requested Please Sign/Date Here
== END 2024-10-26 17:41 | disposition home or self-care (01) ==
PROVIDERS: PCP Physician Assistant Medical; Visit Provider Physician Assistant Surgical
DX: M25.551 Pain in right hip (principal); M25.651 Stiffness of right hip, not elsewhere classified; M76.30 Iliotibial band syndrome, unspecified leg; Z51.89 Encounter for other specified aftercare
CPT/HCPCS: 97110; 97140; 97161; 97530

== ENCOUNTER 2025-02-13 10:01 | Outpatient (CLI) | payer MEDICARE, OTHER, SELFPAY ==
--- NOTE | 2025-02-13 10:15 | CRLHL7_ITS ---
For Patients: As a result of the Century Cures Act, medical imaging exams and procedure reports are released immediately into your electronic medical record. You may view this report before your referring provider. If you have questions, please contact your health care provider. INDICATION: BILATERAL SCREENING MAMMOGRAM, ASYMPTOMATIC 79 Y/O FEMALE COMPARISON: 02/10/2024, 01/08/2023, 01/06/2022 TECHNIQUE: Digital mammogram in CC and MLO projections including computer-aided detection (CAD) and tomosynthesis. BREAST COMPOSITION: The breasts are heterogeneously dense, which may obscure small masses. FINDINGS: No suspicious findings. ASSESSMENT: BI-RADS 2 Benign RECOMMENDATION: Annual screening mammogram. A lay language report of this examination will be provided to the patient. Dictated by: Narinder Perry MD @ 02/14/2025 13:15:22 (Electronically Signed)
== END 2025-02-13 10:02 | disposition home or self-care (01) ==
LOC: MAMMO 10:02
PROVIDERS: PCP Physician Assistant Medical; Visit Provider Physician Assistant Medical
DX: Z12.31 Encounter for screening mammogram for malignant neoplasm of breast (principal); R92.333 Mammographic heterogeneous density, bilateral breasts
CPT/HCPCS: 77063; 77067

== ENCOUNTER 2025-06-26 11:23 | Outpatient (CLI) | payer MEDICARE, OTHER, SELFPAY ==
--- NOTE | 2025-06-26 12:33 | P.ANES_ITS ---
Anesthesia Charges Start Date/Time Anesthesia Start Date: 06/26/25 Anesthesia Start Time: 11:58 Stop Date/Time Anesthesia Stop Date: 06/26/25 Anesthesia Stop Time: 12:29 Coding CPT Codes CPT Codes: RADHA LWR INTST NDSC NOS - 46848 ([id number]) P2 - PATIENT W/MILD SYST DISEASE, QK - RATE INSERTER 2-4 CNCRNT ANES PROC, QX - SCALE AND SKIP CAR OPERATOR SVC W/ MD MED DIRECTION
--- NOTE | 2025-06-26 12:33 | W.ANESCHARGE ---
Anesthesia Charges Start Date/Time Anesthesia Start Date: 06/26/25 Anesthesia Start Time: 11:58 Stop Date/Time Anesthesia Stop Date: 06/26/25 Anesthesia Stop Time: 12:29 Coding CPT Codes CPT Codes: RADHA LWR INTST NDSC NOS - 30911 ([id number]) P2 - PATIENT W/MILD SYST DISEASE, QK - DITTO MACHINE OPERATOR 2-4 CNCRNT ANES PROC, QX - MULTI MEDIA SPECIALIST SVC W/ MD MED DIRECTION
--- NOTE | 2025-06-26 12:40 | P.ANES_ITS ---
Anesthesia Charges Start Date/Time Anesthesia Start Date: 06/26/25 Anesthesia Start Time: 11:58 Stop Date/Time Anesthesia Stop Date: 06/26/25 Anesthesia Stop Time: 12:29 Summary Extremes of Age - Over 70 or under 1: MDA Coding CPT Codes CPT Codes: RADHA LWR INTST NDSC NOS - 94523 ([id number]) P2 - PATIENT W/MILD SYST DISEASE, QX - GEARMAN SVC W/ MD MED DIRECTION, QK - DUSTLESS OPERATOR 2-4 CNCRNT ANES PROC Additional Codes: Summary - Extremes of Age - Over 70 or under 1: MDA ([id number])
--- NOTE | 2025-06-26 12:40 | W.ANESCHARGE ---
Anesthesia Charges Start Date/Time Anesthesia Start Date: 06/26/25 Anesthesia Start Time: 11:58 Stop Date/Time Anesthesia Stop Date: 06/26/25 Anesthesia Stop Time: 12:29 Summary Extremes of Age - Over 70 or under 1: MDA Coding CPT Codes CPT Codes: RADHA LWR INTST NDSC NOS - 26096 ([id number]) P2 - PATIENT W/MILD SYST DISEASE, QX - HISTORICAL GUIDE SVC W/ MD MED DIRECTION, QK - TISSUE TECHNOLOGIST 2-4 CNCRNT ANES PROC Additional Codes: Summary - Extremes of Age - Over 70 or under 1: MDA ([id number])
== END 2025-06-26 11:24 | disposition home or self-care (01) ==
LOC: OP CLINIC 11:25
PROVIDERS: PCP Physician Assistant Medical; Visit Provider Internal Medicine
DX: Z12.11 Encounter for screening for malignant neoplasm of colon (principal); D12.0 Benign neoplasm of cecum; D12.5 Benign neoplasm of sigmoid colon; K57.30 Diverticulosis of large intestine without perforation or abscess without bleeding; Z86.0100 Personal history of colon polyps, unspecified
CPT/HCPCS: 00811; 00812; 45380; 45385; 99100; J2704